=== PATIENT | female | born 1985 | race Two or more races ===

== ENCOUNTER 2017-01-05 08:15 | Inpatient (IN) | payer MEDICARE, MEDICAID ==
[~2017-01-05] VITALS: Ht 156.2 cm; Wt 90.6 kg
[~2017-01-05 08:15] MED LIST: ATOR40TA52 PO; CINA30TA2 PO; CITA-30 PO; FERR325T PO; HYDR-3682 PO; HYDR-531 PO; HYDR200T PO; LORA-205 PO; METO-169 PO; MYCO500T3 PO; PRE5T PO; PROM25TA5 PO; TRAZ100T2 PO; [UNRECOGNIZED DRUG - CODE] PO
[2017-01-05 09:03] LABS: Basophils # (auto) 0.1 uL; Basophils % (auto) 0.8 % (0.0-2.0); Eosinophils # (auto) 0.1 uL; Hematocrit 39.8 % (36.0-46.0); Hemoglobin 13.6 g/dL (12.2-16.2); Lymphocytes # (auto) 2.7 uL; Lymphocytes % (auto) 32.8 % (10.0-50.0); Mean Corpuscular Hemoglobin 28.7 pg (28.0-32.0); Mean Corpuscular Hgb Conc. 34.2 g/dL (32.0-36.0); Mean Corpuscular Volume 83.7 fL (80.0-100.0); Mean Platelet Volume 8.5 fL (7.4-10.4); Monocytes # (auto) 0.9 uL; Monocytes % (auto) 10.5 % (0.0-12.0); Neutrophils # (auto) 4.5 uL; Neutrophils % (auto) 54.9 % (37.0-80.0); Platelet Count (auto) 313 10^3/uL (140-450); Red Cell Distribution Width 13.2 % (11.6-16.0); White Blood Cell 8.3 10^3/uL (4.4-10.8)
[2017-01-05 09:26] LABS: Albumin 3.4 g/dL (3.4-5.0); Alkaline Phosphatase 90 U/L (45-117); Anion Gap 15 (5-15); Aspartate Aminotransferase 54 U/L (15-37); Bilirubin, Total 0.8 mg/dL (0.2-1.0); Blood Urea Nitrogen 56 mg/dL (7-18); Calcium 9.6 mg/dL (8.5-10.1); Carbon Dioxide 23 mmol/L (21-32); Chloride 101 mmol/L (98-107); GFR African American 28 mL/min; GFR Non-African American 23 mL/min; Glucose 115 mg/dL (74-106); Magnesium 1.8 mg/dL (1.6-2.6); Sodium 139 mmol/L (136-145); Total Protein 8.2 g/dL (6.4-8.2)
[2017-01-05 09:33] LABS: Potassium 2.8 mmol/L (3.5-5.1)
[2017-01-05] MEDS ORDERED: LORazepam 2MG/ML-1ML VIAL IV ONE (09:45)
[2017-01-05] MEDS ORDERED: ONDANSETRON HCL 4 MG/2 ML VIAL IV ONE ×2 (09:45→12:30)
[2017-01-05] MEDS ORDERED: NALBUPHINE HCL 10 MG/1ml INJECTION IV ONE (09:45)
[2017-01-05] MEDS ORDERED: POTASSIUM CHL 10% (20 MEQ/15ML) ORAL SOLN PO ONE (09:45)
[2017-01-05] MEDS ORDERED: hydrALAZINE HCL 20 MG/ML VL IV ONE (10:15)
[2017-01-05 10:19] LABS: INR 0.95 (0.9-1.15); Partial Thromboplastin Time 27.3 sec (22.64-33.71); Prothrombin Time 10.3 sec (9.37-12.3)
[2017-01-05] MEDS ORDERED: GABA300C8 PO (11:36)
[2017-01-05] MEDS ORDERED: POTA10TA51 PO (11:36)
[2017-01-05] MEDS ORDERED: HYDROcodone-ACET 10/325MG TAB PO ONE (11:45)
[2017-01-05] MEDS: POTASSIUM CHL 20MEQ/100ML 100 ML IV SCH ×2 (11:45→13:45)
[2017-01-05] MEDS ORDERED: cefTRIAXone 1GM/50ML D5W 50 ML IV ONE (14:45)
[2017-01-05] MEDS ORDERED: hydrALAZINE HCL 20 MG/ML VL IV PRN (14:45)
[2017-01-05] MEDS ORDERED: TEMAZEPAM 15 MG CAP PO PRN (14:45)
[2017-01-05] MEDS ORDERED: ACETAMINOPHEN 325 MG TAB PO PRN (14:45)
[2017-01-05] MEDS ORDERED: HYDROcodone-ACET 5/325MG TAB PO PRN (14:45)
[2017-01-05] MEDS ORDERED: NITROGLYCERIN 0.4 MG SL TAB SL PRN (14:45)
[2017-01-05] MEDS ORDERED: METOPROLOL TARTRATE 50 MG TAB PO ONE (15:15)
[2017-01-05] MEDS: SODIUM CHLORIDE 0.9% 1,000 ML IV SCH ×2 (15:24→22:51)
[2017-01-05] MEDS: FAMOTIDINE 20 MG TAB PO SCH (15:24)
[2017-01-05] MEDS: ONDANSETRON HCL 4 MG/2 ML VIAL IV PRN ×2 (15:26→20:10)
[2017-01-05] MEDS: HYDROmorphone HCL 2 MG/ML VL IV PRN ×2 (15:26→20:10)
[2017-01-05] MEDS: LORazepam 0.5 MG TAB PO PRN (17:44)
[2017-01-05] MEDS: FERROUS SULFATE 325 MG TAB PO SCH (18:45)
[2017-01-05] MEDS ORDERED: CINA30TA2 PO (18:48)
[2017-01-05] MEDS ORDERED: ATOR20TA50 PO (18:48)
[2017-01-05] MEDS ORDERED: PRE1T PO (18:48)
[2017-01-05] MEDS ORDERED: MYCO250C PO (18:48)
[2017-01-05] MEDS ORDERED: DOXE1CAP4 PO (18:48)
[2017-01-05 21:36] VITALS: BP 122/68
[2017-01-05] MEDS ORDERED: FAMOTIDINE 20 MG TAB PO SCH (22:00)
[2017-01-05] MEDS: MYCOPHENOLATE 500 MG TAB PO SCH (22:09)
[2017-01-05] MEDS: GABAPENTIN 300 MG CAP PO SCH (22:09)
[2017-01-05] MEDS: POTASSIUM CHLORIDE 8 MEQ TAB PO SCH (22:09)
[2017-01-05] MEDS: ATORVASTATIN 20 MG TAB PO SCH (22:09)
[2017-01-05] MEDS: HYDROXYCHLOROQUINE SULFATE 200 MG TAB PO SCH (22:09)
[2017-01-05] MEDS: traZODone HCL 50 MG TAB PO SCH (22:09)
[2017-01-05] MEDS: METOPROLOL TARTRATE 50 MG TAB PO SCH (22:10)
[2017-01-06] MEDS: ONDANSETRON HCL 4 MG/2 ML VIAL IV PRN ×6 (00:10→21:39)
[2017-01-06] MEDS: HYDROmorphone HCL 2 MG/ML VL IV PRN ×6 (00:10→21:39)
[2017-01-06] MEDS: LORazepam 0.5 MG TAB PO PRN (03:59)
[2017-01-06 04:56] VITALS: BP 134/56
[2017-01-06 05:39] LABS: Basophils # (auto) 0 uL; Basophils % (auto) 0.5 % (0.0-2.0); Eosinophils # (auto) 0.1 uL; Eosinophils % (auto) 2.4 % (0.0-7.0); Hematocrit 33.8 % (36.0-46.0); Hemoglobin 11.9 g/dL (12.2-16.2); Lymphocytes % (auto) 36.9 % (10.0-50.0); Mean Corpuscular Hemoglobin 29.7 pg (28.0-32.0); Mean Corpuscular Hgb Conc. 35.2 g/dL (32.0-36.0); Mean Corpuscular Volume 84.4 fL (80.0-100.0); Mean Platelet Volume 8.8 fL (7.4-10.4); Monocytes # (auto) 0.7 uL; Monocytes % (auto) 12.9 % (0.0-12.0); Neutrophils # (auto) 2.6 uL; Neutrophils % (auto) 47.3 % (37.0-80.0); Platelet Count (auto) 249 10^3/uL (140-450); Red Cell Distribution Width 13.5 % (11.6-16.0); White Blood Cell 5.5 10^3/uL (4.4-10.8)
[2017-01-06 05:55] LABS: Albumin 2.9 g/dL (3.4-5.0); BUN/Creatinine Ratio 15.4; Calcium 8.9 mg/dL (8.5-10.1)
[2017-01-06 05:58] LABS: Bilirubin, Total 1.3 mg/dL (0.2-1.0); Total Protein 6.9 g/dL (6.4-8.2)
[2017-01-06 06:01] LABS: Potassium 2.9 mmol/L (3.5-5.1)
[2017-01-06] MEDS ORDERED: POTASSIUM CHL 20 Meq TABLET PO ONE (06:45)
[2017-01-06] MEDS: SODIUM CHLORIDE 0.9% 1,000 ML IV SCH ×2 (07:11→14:31)
[2017-01-06 08:00] VITALS: BP 96/40
[2017-01-06] MEDS: CITALOPRAM HYDROBR 20 MG TAB PO SCH (08:52)
[2017-01-06] MEDS: POTASSIUM CHLORIDE 8 MEQ TAB PO SCH (08:53)
[2017-01-06] MEDS: FERROUS SULFATE 325 MG TAB PO SCH (08:53)
[2017-01-06] MEDS: FAMOTIDINE 20 MG TAB PO SCH (08:53)
[2017-01-06] MEDS: cefTRIAXone 1GM/50ML D5W 50 ML IV SCH (08:54)
[2017-01-06] MEDS: MYCOPHENOLATE 500 MG TAB PO SCH ×2 (08:55→21:38)
[2017-01-06] MEDS: CINACALCET HYDROCHLORIDE 30 MG TAB PO SCH (08:56)
[2017-01-06 09:00] VITALS: BP 96/40
[2017-01-06] MEDS: METOPROLOL TARTRATE 50 MG TAB PO SCH ×2 (09:10→21:39)
[2017-01-06] MEDS: HECTORAL PO SCH (09:10)
[2017-01-06] MEDS: predniSONE 1 MG TAB PO SCH (09:17)
[2017-01-06] MEDS ORDERED: PATIENTS OWN MEDICATION PO SCH ×2 (10:00)
[2017-01-06] MEDS: POTASSIUM CHL 20MEQ/100ML 100 ML IV SCH ×2 (12:48→14:45)
[2017-01-06 13:00] VITALS: BP 132/81
[2017-01-06 14:18] LABS: BUN/Creatinine Ratio 14.2; Calcium 8.7 mg/dL (8.5-10.1); Potassium 3.9 mmol/L (3.5-5.1)
[2017-01-06] MEDS ORDERED: PANTOPRAZOLE 40 MG TAB PO ONE (15:15)
[2017-01-06 17:00] VITALS: BP 119/48
[2017-01-06 17:42] LABS: Urine Bilirubin Negative (Negative); Urine Color Yellow (Yellow); Urine Ketone Negative (Negative); Urine Nitrite Negative (Negative); Urine RBC 184 /hpf (0 - 4); Urine Squamous Epithelial Cell FEW /hpf (<5)
[2017-01-06 17:54] LABS: Urine Blood 2+ /uL (Negative); Urine Glucose 2+ mg/dL (Normal)
[2017-01-06] MEDS: BOOST PLUS 8 ounce PO SCH ×2 (17:54→21:38)
[2017-01-06 21:27] LABS: Body Fluid Polymorphonuclear 74 %
[2017-01-06] MEDS: traZODone HCL 50 MG TAB PO SCH (21:38)
[2017-01-06] MEDS: PANTOPRAZOLE 40 MG TAB PO SCH (21:38)
[2017-01-06] MEDS: GABAPENTIN 300 MG CAP PO SCH (21:38)
[2017-01-06] MEDS: ATORVASTATIN 20 MG TAB PO SCH (21:38)
[2017-01-06] MEDS: HYDROXYCHLOROQUINE SULFATE 200 MG TAB PO SCH (21:38)
[2017-01-06 22:00] VITALS: BP 130/51
[2017-01-07] MEDS: HYDROmorphone HCL 2 MG/ML VL IV PRN ×6 (02:21→23:09)
[2017-01-07] MEDS: ONDANSETRON HCL 4 MG/2 ML VIAL IV PRN ×6 (02:21→23:09)
[2017-01-07] MEDS: SODIUM CHLORIDE 0.9% 1,000 ML IV SCH ×2 (03:01→15:32)
[2017-01-07] MEDS: BOOST PLUS 8 ounce PO SCH ×4 (05:10→22:00)
[2017-01-07 06:23] LABS: Basophils # (auto) 0 uL; Basophils % (auto) 0.4 % (0.0-2.0); Eosinophils # (auto) 0.2 uL; Hematocrit 31.3 % (36.0-46.0); Hemoglobin 10.5 g/dL (12.2-16.2); Lymphocytes # (auto) 1.7 uL; Lymphocytes % (auto) 19.8 % (10.0-50.0); Mean Corpuscular Hemoglobin 28.8 pg (28.0-32.0); Mean Corpuscular Hgb Conc. 33.5 g/dL (32.0-36.0); Mean Corpuscular Volume 85.8 fL (80.0-100.0); Monocytes # (auto) 0.8 uL; Monocytes % (auto) 9.6 % (0.0-12.0); Neutrophils # (auto) 5.9 uL; Neutrophils % (auto) 68.2 % (37.0-80.0); Platelet Count (auto) 202 10^3/uL (140-450); Red Cell Distribution Width 13.3 % (11.6-16.0); White Blood Cell 8.6 10^3/uL (4.4-10.8)
[2017-01-07 06:44] LABS: Albumin 2.6 g/dL (3.4-5.0); BUN/Creatinine Ratio 13.5; Bilirubin, Total 0.6 mg/dL (0.2-1.0); Calcium 8.5 mg/dL (8.5-10.1); Potassium 4.3 mmol/L (3.5-5.1); Total Protein 6.3 g/dL (6.4-8.2)
[2017-01-07 08:00] VITALS: BP 136/69
[2017-01-07 08:03] VITALS: BP 136/69
[2017-01-07] MEDS ORDERED: SODIUM CHLORIDE LOCK 10 ML ONE (09:26)
[2017-01-07] MEDS ORDERED: FLUMAZENIL 0.1 MG/ML INJ 10ML MDV IV ONE (09:26)
[2017-01-07] MEDS ORDERED: NALOXONE HCL 0.4 MG/ML VIAL ONE (09:26)
[2017-01-07] MEDS ORDERED: LIDOCAINE VISCOUS 2% 15ML UD ONE (09:26)
[2017-01-07] MEDS: cefTRIAXone 1GM/50ML D5W 50 ML IV SCH (09:37)
[2017-01-07] MEDS: MYCOPHENOLATE 500 MG TAB PO SCH ×2 (10:00→22:13)
[2017-01-07] MEDS: HECTORAL PO SCH (10:00)
[2017-01-07] MEDS: CINACALCET HYDROCHLORIDE 30 MG TAB PO SCH (10:00)
[2017-01-07] MEDS: MIDAZOLAM HCL 5 MG/ML-1ML VIAL ONE ×2 (12:11→12:14)
[2017-01-07] MEDS: fentaNYL CITRATE 100 MCG/2 ML VL ONE ×2 (12:11→12:14)
[2017-01-07 12:20] VITALS: BP 125/62
[2017-01-07] MEDS: PANTOPRAZOLE 40 MG TAB PO SCH ×2 (14:23→22:13)
[2017-01-07] MEDS: METOPROLOL TARTRATE 50 MG TAB PO SCH ×2 (14:23→22:13)
[2017-01-07] MEDS: CITALOPRAM HYDROBR 20 MG TAB PO SCH (14:23)
[2017-01-07] MEDS: POTASSIUM CHLORIDE 8 MEQ TAB PO SCH (14:23)
[2017-01-07] MEDS: predniSONE 1 MG TAB PO SCH (14:25)
[2017-01-07 17:12] VITALS: BP 120/67
[2017-01-07 22:00] VITALS: BP 135/59
[2017-01-07] MEDS: GABAPENTIN 300 MG CAP PO SCH (22:13)
[2017-01-07] MEDS: traZODone HCL 50 MG TAB PO SCH (22:13)
[2017-01-07] MEDS: HYDROXYCHLOROQUINE SULFATE 200 MG TAB PO SCH (22:14)
[2017-01-07] MEDS: ATORVASTATIN 20 MG TAB PO SCH (22:14)
[2017-01-08] MEDS: HYDROmorphone HCL 2 MG/ML VL IV PRN ×5 (04:18→21:24)
[2017-01-08] MEDS: SODIUM CHLORIDE 0.9% 1,000 ML IV SCH ×2 (04:18→16:52)
[2017-01-08] MEDS: ONDANSETRON HCL 4 MG/2 ML VIAL IV PRN ×5 (04:18→21:24)
[2017-01-08 05:00] VITALS: BP 105/45
[2017-01-08] MEDS: BOOST PLUS 8 ounce PO SCH ×4 (06:00→21:22)
[2017-01-08 06:34] LABS: Basophils # (auto) 0 uL; Basophils % (auto) 0.5 % (0.0-2.0); Eosinophils # (auto) 0.3 uL; Eosinophils % (auto) 3.5 % (0.0-7.0); Hematocrit 30.5 % (36.0-46.0); Hemoglobin 10.1 g/dL (12.2-16.2); Lymphocytes # (auto) 1.7 uL; Lymphocytes % (auto) 22.9 % (10.0-50.0); Mean Corpuscular Hemoglobin 28.6 pg (28.0-32.0); Mean Corpuscular Hgb Conc. 33.3 g/dL (32.0-36.0); Mean Corpuscular Volume 85.9 fL (80.0-100.0); Mean Platelet Volume 9.1 fL (7.4-10.4); Monocytes # (auto) 0.9 uL; Monocytes % (auto) 11.3 % (0.0-12.0); Neutrophils # (auto) 4.7 uL; Neutrophils % (auto) 61.8 % (37.0-80.0); Platelet Count (auto) 196 10^3/uL (140-450); Red Cell Distribution Width 13.6 % (11.6-16.0); White Blood Cell 7.5 10^3/uL (4.4-10.8)
[2017-01-08 07:15] LABS: Albumin 2.5 g/dL (3.4-5.0); Bilirubin, Total 0.5 mg/dL (0.2-1.0); Calcium 8.6 mg/dL (8.5-10.1); Potassium 3.8 mmol/L (3.5-5.1); Total Protein 6.3 g/dL (6.4-8.2)
[2017-01-08 08:42] VITALS: BP 121/52
[2017-01-08] MEDS: predniSONE 1 MG TAB PO SCH (08:54)
[2017-01-08] MEDS: CITALOPRAM HYDROBR 20 MG TAB PO SCH (08:55)
[2017-01-08] MEDS: PANTOPRAZOLE 40 MG TAB PO SCH ×2 (08:55→21:24)
[2017-01-08] MEDS: POTASSIUM CHLORIDE 8 MEQ TAB PO SCH (08:55)
[2017-01-08] MEDS: cefTRIAXone 1GM/50ML D5W 50 ML IV SCH (08:56)
[2017-01-08] MEDS: HECTORAL PO SCH (08:56)
[2017-01-08] MEDS: METOPROLOL TARTRATE 50 MG TAB PO SCH ×2 (08:57→21:23)
[2017-01-08] MEDS: MYCOPHENOLATE 500 MG TAB PO SCH ×2 (10:45→21:22)
[2017-01-08] MEDS: CINACALCET HYDROCHLORIDE 30 MG TAB PO SCH (10:45)
[2017-01-08 12:15] VITALS: BP 130/50
[2017-01-08 13:11] VITALS: BP 136/79
[2017-01-08] MEDS: HYDROCORTISONE ACET 25 MG RECTAL SUPP PR SCH ×2 (15:25→21:24)
[2017-01-08 16:56] VITALS: BP 143/73
[2017-01-08] MEDS: Novasource Renal 8 Ounces PO SCH (17:56)
[2017-01-08] MEDS: PRO-STAT 64 30ML PO SCH (17:56)
[2017-01-08] MEDS: ATORVASTATIN 20 MG TAB PO SCH (21:23)
[2017-01-08] MEDS: GABAPENTIN 300 MG CAP PO SCH (21:23)
[2017-01-08] MEDS: traZODone HCL 50 MG TAB PO SCH (21:23)
[2017-01-08] MEDS: HYDROXYCHLOROQUINE SULFATE 200 MG TAB PO SCH (21:24)
[2017-01-08 22:00] VITALS: BP 125/58
[2017-01-09] MEDS: HYDROmorphone HCL 2 MG/ML VL IV PRN ×4 (03:38→16:33)
[2017-01-09] MEDS: ONDANSETRON HCL 4 MG/2 ML VIAL IV PRN ×4 (03:39→16:34)
[2017-01-09 05:00] VITALS: BP 116/56
[2017-01-09] MEDS: SODIUM CHLORIDE 0.9% 1,000 ML IV SCH ×2 (05:17→16:26)
[2017-01-09] MEDS: BOOST PLUS 8 ounce PO SCH ×3 (06:00→17:44)
[2017-01-09 08:00] VITALS: BP 131/59
[2017-01-09] MEDS: Novasource Renal 8 Ounces PO SCH ×2 (08:01→17:44)
[2017-01-09] MEDS: PRO-STAT 64 30ML PO SCH ×2 (08:02→17:44)
[2017-01-09 09:00] VITALS: BP 131/59
[2017-01-09] MEDS: HECTORAL PO SCH (10:00)
[2017-01-09] MEDS: MYCOPHENOLATE 500 MG TAB PO SCH (10:00)
[2017-01-09] MEDS: CINACALCET HYDROCHLORIDE 30 MG TAB PO SCH (10:00)
[2017-01-09] MEDS: CITALOPRAM HYDROBR 20 MG TAB PO SCH (10:28)
[2017-01-09] MEDS: PANTOPRAZOLE 40 MG TAB PO SCH (10:28)
[2017-01-09] MEDS: HYDROCORTISONE ACET 25 MG RECTAL SUPP PR SCH (10:28)
[2017-01-09] MEDS: cefTRIAXone 1GM/50ML D5W 50 ML IV SCH (10:28)
[2017-01-09] MEDS: METOPROLOL TARTRATE 50 MG TAB PO SCH (10:29)
[2017-01-09] MEDS: POTASSIUM CHLORIDE 8 MEQ TAB PO SCH (10:39)
[2017-01-09] MEDS: predniSONE 1 MG TAB PO SCH (12:29)
[2017-01-09 13:08] VITALS: BP 131/50
[2017-01-09] MEDS ORDERED: PANT40TA2 PO (14:00)
[2017-01-09] MEDS ORDERED: SUC1LQ PO (14:00)
[2017-01-09] MEDS ORDERED: PRE1T PO (14:00)
[2017-01-09 16:57] VITALS: BP 143/68
[2017-01-09 20:44] VITALS: BP 126/74
== END 2017-01-09 21:15 | disposition home or self-care (01) | DRG 391 ==
LOC: ER 08:15 → TELE 08:16 → TELE-E-ADS 16:42 → TELE-WESTW 18:11
PROVIDERS: ADMIT Internal Medicine; ATTEND Nurse Practitioner Acute Care
PROC: 0DB68ZX Excision of Stomach, Via Natural or Artificial Opening Endoscopic, Diagnostic (ICD-10-PCS; principal; 2017-01-07 12:08)
DX: K29.00 Acute gastritis without bleeding (principal); N18.6 End stage renal disease; E43 Unspecified severe protein-calorie malnutrition; I13.2 Hypertensive heart and chronic kidney disease with heart failure and with stage 5 chronic kidney disease, or end stage renal disease; M87.9 Osteonecrosis, unspecified; J20.9 Acute bronchitis, unspecified; E87.6 Hypokalemia; F41.9 Anxiety disorder, unspecified; M32.9 Systemic lupus erythematosus, unspecified; I50.9 Heart failure, unspecified; K52.9 Noninfective gastroenteritis and colitis, unspecified; M79.7 Fibromyalgia; I71.9 Aortic aneurysm of unspecified site, without rupture; E86.0 Dehydration; M19.90 Unspecified osteoarthritis, unspecified site; D63.8 Anemia in other chronic diseases classified elsewhere; Z99.2 Dependence on renal dialysis; Z90.49 Acquired absence of other specified parts of digestive tract; Z88.5 Allergy status to narcotic agent; Z88.8 Allergy status to other drugs, medicaments and biological substances; Z86.79 Personal history of other diseases of the circulatory system; Z86.14 Personal history of Methicillin resistant Staphylococcus aureus infection; Z68.37 Body mass index [BMI] 37.0-37.9, adult
CPT/HCPCS: 36415; 71020; 74176; 80048; 80053; 80074; 81001; 82306; 83735; 83970; 84100; 84484; 84702; 85025; 85610; 85730; 87070; 87081; 87205; 87493; 89051; 93005; 96374; 96375; 96376; J0696; J2250; J2405; J3480; J7517

== ENCOUNTER 2017-02-05 05:24 | Emergency (ER) | payer MEDICARE, MEDICAID ==
[~2017-02-05] VITALS: Ht 154.9 cm; Wt 72.6 kg
[~2017-02-05 05:24] MED LIST changes: +ATOR20TA50 PO; -ATOR40TA52 PO; +DOXE1CAP4 PO; +GABA300C8 PO; +MYCO250C PO; -MYCO500T3 PO; +PANT40TA2 PO; +POTA10TA51 PO; +PRE1T PO; -PRE5T PO; +SUC1LQ PO; -[UNRECOGNIZED DRUG - CODE] PO
[2017-02-05 05:44] VITALS: BP 132/65
== END 2017-02-05 06:15 | disposition left against medical advice (07) ==
LOC: ER 05:24
DX: R07.9 Chest pain, unspecified (principal); Z53.21 Procedure and treatment not carried out due to patient leaving prior to being seen by health care provider
CPT/HCPCS: 93005

== ENCOUNTER 2019-05-30 17:48 | Inpatient (IN) | payer MEDICARE, MEDICAID ==
[~2019-05-30] VITALS: Ht 160 cm; Wt 70.4 kg
[~2019-05-30 17:48] MED LIST changes: -ATOR20TA50 PO; -CINA30TA2 PO; -CITA-30 PO; -DOXE1CAP4 PO; -FERR325T PO; -GABA300C8 PO; +HYDR-4188 PO; -HYDR200T PO; -METO-169 PO; -POTA10TA51 PO; -SUC1LQ PO
[2019-05-30] MEDS ORDERED: ONDANSETRON HCL 4 MG/2 ML VIAL IV ONE (19:15)
[2019-05-30] MEDS ORDERED: MORPHINE SULFATE 4 MG/ML SYR/VIAL IV ONE (19:15)
[2019-05-30] MEDS ORDERED: VANCOMYCIN 1GM/250ML 250 ML IV ONE (19:45)
[2019-05-30] MEDS ORDERED: PIPERACILLIN-TAZOB 3.375GM 100 ML IV ONE (19:45)
[2019-05-30 19:49] LABS: Basophils # (auto) 0.1 uL; Basophils % (auto) 0.8 % (0.0-2.0); Eosinophils # (auto) 0.1 uL; Eosinophils % (auto) 1.5 % (0.0-7.0); Hematocrit 34.1 % (36.0-46.0); Hemoglobin 11.3 g/dL (12.2-16.2); Lymphocytes % (auto) 28.8 % (10.0-50.0); Mean Corpuscular Hemoglobin 29.6 pg (28.0-32.0); Mean Corpuscular Hgb Conc. 33.1 g/dL (32.0-36.0); Mean Corpuscular Volume 89.4 fL (80.0-100.0); Monocytes # (auto) 0.5 uL; Monocytes % (auto) 7.7 % (0.0-12.0); Neutrophils # (auto) 4.2 uL; Neutrophils % (auto) 61.2 % (37.0-80.0); Nucleated Red Blood Cells % 0.1 %; Platelet Count (auto) 136 10^3/uL (140-450); Red Blood Cells 3.81 10^6/uL (4.0-5.20); Red Cell Distribution Width 16.1 % (11.8-14.3); White Blood Cell 6.9 10^3/uL (4.4-10.8)
[2019-05-30 20:01] LABS: Alanine Aminotransferase 19 U/L (13-56); Albumin 2.9 g/dL (3.4-5.0); Anion Gap 14 (5-15); Aspartate Aminotransferase 10 U/L (15-37); BUN/Creatinine Ratio 11.1; Blood Urea Nitrogen 78 mg/dL (7-18); Calcium 8.3 mg/dL (8.5-10.1); Carbon Dioxide 17 mmol/L (21-32); Chloride 106 mmol/L (98-107); GFR African American 9 mL/min; GFR Non-African American 7 mL/min; Glucose 105 mg/dL (74-106); Potassium 4.5 mmol/L (3.5-5.1); Sodium 137 mmol/L (136-145)
[2019-05-30 20:04] LABS: Alkaline Phosphatase 191 U/L (45-117); Bilirubin, Total 0.2 mg/dL (0.2-1.0); Total Protein 6.6 g/dL (6.4-8.2)
[2019-05-30 20:08] LABS: INR < 0.93 (0.9-1.15); Partial Thromboplastin Time 28.2 sec (23.64-32.05)
[2019-05-30] MEDS ORDERED: methylPREDNISolone SOD SUCC 125 MG/2 ML VL IV ONE (20:15)
[2019-05-30] MEDS ORDERED: methylPREDNISolone SOD SUCC 125 MG/2 ML VL ONE (20:17)
[2019-05-30] MEDS ORDERED: LORazepam 2MG/ML-1ML VIAL IV ONE ×2 (20:30→21:00)
[2019-05-30] MEDS ORDERED: PROMETHAZINE HCL 25 MG/ML 1ML IV ONE (20:45)
[2019-05-30 22:54] LABS: Urine Bacteria NONE SEEN /hpf (None Seen); Urine Blood 2+ /uL (Negative); Urine Specific Gravity 1.012 (1.001-1.035); Urine WBC 1 /hpf (0 - 5)
[2019-05-31] VITALS (9 sets, daily range): BP systolic 141–177; BP diastolic 38–77
[2019-05-31] MEDS ORDERED: METOPROLOL TARTRATE 50 MG TAB PO ONE (00:15)
[2019-05-31] MEDS ORDERED: ACETAMINOPHEN 500 MG TAB PO PRN (00:45)
[2019-05-31] MEDS ORDERED: LORazepam 0.5 MG TAB PO PRN (00:45)
[2019-05-31] MEDS ORDERED: HYDROmorphone HCL 2 MG/ML VL IV ONE (01:30)
[2019-05-31] MEDS: cloNIDine HCL 0.1 MG TAB PO PRN ×3 (02:51→12:14)
[2019-05-31] MEDS: HYDROcodone-ACET 5/325MG TAB PO PRN ×4 (02:52→21:56)
[2019-05-31] MEDS ORDERED: CINA30TA2 PO (03:56)
[2019-05-31] MEDS ORDERED: SEVE800T8 PO (03:56)
[2019-05-31] MEDS: PANTOPRAZOLE 40 MG TAB PO SCH (05:16)
[2019-05-31] MEDS: cefTRIAXone 1GM/50ML D5W 50 ML IV SCH (06:53)
[2019-05-31 07:09] LABS: Basophils # (auto) 0 uL; Eosinophils # (auto) 0 uL; Eosinophils % (auto) 0.1 % (0.0-7.0); Hematocrit 33.6 % (36.0-46.0); Hemoglobin 11.2 g/dL (12.2-16.2); Lymphocytes # (auto) 0.7 uL; Lymphocytes % (auto) 23.3 % (10.0-50.0); Mean Corpuscular Hemoglobin 29.7 pg (28.0-32.0); Mean Corpuscular Hgb Conc. 33.4 g/dL (32.0-36.0); Mean Corpuscular Volume 88.8 fL (80.0-100.0); Monocytes # (auto) 0 uL; Monocytes % (auto) 0.7 % (0.0-12.0); Neutrophils # (auto) 2.3 uL; Neutrophils % (auto) 75.9 % (37.0-80.0); Platelet Count (auto) 117 10^3/uL (140-450); Red Blood Cells 3.78 10^6/uL (4.0-5.20); Red Cell Distribution Width 15.7 % (11.8-14.3); White Blood Cell 3.1 10^3/uL (4.4-10.8)
[2019-05-31 07:33] LABS: Calcium 8.5 mg/dL (8.5-10.1); Potassium 5.2 mmol/L (3.5-5.1)
[2019-05-31 07:34] LABS: BUN/Creatinine Ratio 11.7
[2019-05-31] MEDS: metroNIDAZOLE 500MG/100ML 100 ML IV SCH ×3 (08:17→23:39)
[2019-05-31] MEDS: HYDROXYCHLOROQUINE SULFATE 200 MG TAB PO SCH (09:15)
[2019-05-31] MEDS: MYCOPHENOLATE 500 MG TAB PO SCH ×2 (09:15→21:40)
[2019-05-31] MEDS: METOPROLOL TARTRATE 50 MG TAB PO SCH ×2 (09:15→21:42)
[2019-05-31] MEDS: PERITONEAL DIALYSIS 2.5% SOLN 2,000 ML IP SCH ×4 (11:30→21:41)
[2019-05-31] MEDS ORDERED: HYDROmorphone HCL 2 MG/ML VL IV PRN (11:45)
[2019-05-31] MEDS ORDERED: hydrOXYzine 25 MG TAB or CAP PO PRN (11:45)
[2019-05-31] MEDS: ONDANSETRON HCL 4 MG/2 ML VIAL IV PRN ×2 (12:04→18:25)
[2019-05-31 16:06] LABS: Protein, Urine 106.1 mg/dL (0.0-11.9)
[2019-05-31] MEDS: HYDROmorphone HCL 2 MG/ML VL IV PRN ×2 (18:29→23:38)
[2019-05-31] MEDS ORDERED: traZODone HCL 50 MG TAB PO SCH (22:00)
[2019-06-01] MEDS: PERITONEAL DIALYSIS 2.5% SOLN 2,000 ML IP SCH ×3 (01:44→09:07)
[2019-06-01] MEDS: HYDROmorphone HCL 2 MG/ML VL IV PRN ×2 (05:02→09:09)
[2019-06-01] MEDS: PANTOPRAZOLE 40 MG TAB PO SCH (05:07)
[2019-06-01 05:52] VITALS: BP 115/42
[2019-06-01 06:28] LABS: Potassium 4.2 mmol/L (3.5-5.1)
[2019-06-01] MEDS: cefTRIAXone 1GM/50ML D5W 50 ML IV SCH (06:30)
[2019-06-01 06:37] LABS: BUN/Creatinine Ratio 12.7; Calcium 7.6 mg/dL (8.5-10.1)
[2019-06-01] MEDS: metroNIDAZOLE 500MG/100ML 100 ML IV SCH (07:57)
[2019-06-01] MEDS: ONDANSETRON HCL 4 MG/2 ML VIAL IV PRN (08:38)
[2019-06-01 09:00] VITALS: BP 128/54
[2019-06-01] MEDS: MYCOPHENOLATE 500 MG TAB PO SCH (09:08)
[2019-06-01] MEDS: METOPROLOL TARTRATE 50 MG TAB PO SCH (09:08)
[2019-06-01] MEDS: HYDROXYCHLOROQUINE SULFATE 200 MG TAB PO SCH (09:09)
[2019-06-01] MEDS ORDERED: predniSONE 20 MG TAB PO SCH (10:00)
== END 2019-06-01 12:24 | disposition home or self-care (01) | DRG 391 ==
LOC: ER 17:55 → TELE 17:56 → TELE-EAST 05-31 02:21
PROVIDERS: ADMIT Nurse Practitioner Family; ATTEND Family Medicine
DX: R10.9 Unspecified abdominal pain (principal); N18.6 End stage renal disease; I12.0 Hypertensive chronic kidney disease with stage 5 chronic kidney disease or end stage renal disease; E87.5 Hyperkalemia; M32.9 Systemic lupus erythematosus, unspecified; G89.29 Other chronic pain; D63.8 Anemia in other chronic diseases classified elsewhere; E78.00 Pure hypercholesterolemia, unspecified; F41.9 Anxiety disorder, unspecified; I27.20 Pulmonary hypertension, unspecified; E86.0 Dehydration; Z88.6 Allergy status to analgesic agent; Z88.8 Allergy status to other drugs, medicaments and biological substances; Z90.49 Acquired absence of other specified parts of digestive tract; Z99.2 Dependence on renal dialysis; Z83.49 Family history of other endocrine, nutritional and metabolic diseases; Z98.51 Tubal ligation status; Z82.49 Family history of ischemic heart disease and other diseases of the circulatory system; Z79.899 Other long term (current) drug therapy; Z83.3 Family history of diabetes mellitus
CPT/HCPCS: 36415; 71045; 74176; 80048; 80053; 81001; 82570; 83605; 84156; 84702; 85025; 85610; 85730; 86038; 86160; 87040; 87081; 87205; 87493; 89051; 93005; G0378; J0696; J2405; J2543; J3490; J7517

== ENCOUNTER 2020-07-05 16:53 | Inpatient (IN) | payer MEDICARE, MEDICAID ==
[~2020-07-05] VITALS: Ht 157.5 cm; Wt 59.0 kg
[~2020-07-05 16:53] MED LIST changes: +CINA30TA2 PO; -PANT40TA2 PO; -PRE1T PO; +SEVE800T8 PO; -TRAZ100T2 PO; +TRAZ100T3 PO
[2020-07-05] MEDS ORDERED: MORPHINE SULFATE 4 MG/ML SYR/VIAL IV ONE (18:00)
[2020-07-05] MEDS ORDERED: ONDANSETRON HCL 4 MG/2 ML VIAL IV ONE (18:00)
[2020-07-05 18:21] LABS: Basophils # (auto) 0 10 ^3/uL (0-0.2); Basophils % (auto) 0.2 % (0.0-2.0); Eosinophils # (auto) 0.1 10 ^3/uL (0-0.8); Eosinophils % (auto) 0.5 % (0.0-7.0); Hematocrit 26.6 % (36.0-46.0); Hemoglobin 8.9 g/dL (12.2-16.2); Lymphocytes # (auto) 1.5 10 ^3/uL (0.4-5.4); Lymphocytes % (auto) 13.1 % (10.0-50.0); Mean Corpuscular Hemoglobin 27.8 pg (28.0-32.0); Mean Corpuscular Hgb Conc. 33.3 g/dL (32.0-36.0); Mean Corpuscular Volume 83.3 fL (80.0-100.0); Monocytes # (auto) 0.7 10 ^3/uL (0-1.3); Monocytes % (auto) 6.4 % (0.0-12.0); Neutrophils # (auto) 9.1 10 ^3/uL (1.6-8.6); Neutrophils % (auto) 79.8 % (37.0-80.0); Platelet Count (auto) 158 10^3/uL (140-450); Red Blood Cells 3.19 10^6/uL (4.0-5.20); Red Cell Distribution Width 17.3 % (11.8-14.3); White Blood Cell 11.4 10^3/uL (4.4-10.8)
[2020-07-05 18:45] LABS: Albumin 2.6 g/dL (3.4-5.0); Anion Gap 12 (5-15); Blood Urea Nitrogen 71 mg/dL (7-18); Calcium 8.3 mg/dL (8.5-10.1); Carbon Dioxide 19 mmol/L (21-32); Chloride 105 mmol/L (98-107); Glucose 93 mg/dL (74-106); Potassium 3.8 mmol/L (3.5-5.1); Sodium 136 mmol/L (136-145)
[2020-07-05] MEDS ORDERED: PROCHLORPERAZINE EDISYLATE 5 MG/ML 2ML VIAL IV ONE (18:45)
[2020-07-05 18:53] LABS: Alanine Aminotransferase 18 U/L (13-56); Alkaline Phosphatase 179 U/L (45-117); Aspartate Aminotransferase 6 U/L (15-37); BUN/Creatinine Ratio 8.2; Bilirubin, Total 0.4 mg/dL (0.2-1.0); CRP High Sensitivity 1.18 mg/dL (< 0.3); GFR African American 7 mL/min; GFR Non-African American 6 mL/min; Total Protein 6.5 g/dL (6.4-8.2)
[2020-07-05] MEDS ORDERED: ACETAMINOPHEN 325 MG TAB PO ONE (19:30)
[2020-07-05] MEDS ORDERED: NITROGLYCERIN 0.4 MG SL TAB SL PRN (20:00)
[2020-07-05] MEDS ORDERED: MORPHINE SULF INJ 2 MG/ML SYRINGE 1ML IV PRN (20:00)
[2020-07-05] MEDS ORDERED: hydrALAZINE HCL 20 MG/ML VL IV PRN (20:00)
[2020-07-05] MEDS ORDERED: LORazepam 2MG/ML-1ML VIAL IV PRN (20:00)
[2020-07-05 20:35] VITALS: BP 149/53
[2020-07-05] MEDS: SODIUM CHLORIDE 0.9% 1,000 ML IV SCH (20:47)
[2020-07-05 22:00] VITALS: BP 155/75
[2020-07-05] MEDS ORDERED: ALBUTEROL SULF HFA 90MCG INH 200DOSE IN SCH (22:00)
[2020-07-05] MEDS ORDERED: DOXYCYCLINE 100MG/250ML 250 ML IV SCH (22:00)
[2020-07-05] MEDS ORDERED: BUDESONIDE (INHALATION) 180 MCG IH IN SCH (22:00)
--- NOTE | 2020-07-05 22:00 | NUR ---
Telemetry admit from ER to [facility]-19 Unit AISLINN BRANNON admitted to Telemetry unit. Patient oriented to YEISON GREER, primary RN, unit, room, bed, and unit policies regarding patient care and visiting hours. Patient now on continuous telemetry monitoring, tele box # 2 and telemetry reading on arrival to unit is sinus rhythm. Patient is alert and oriented x4. Patient denies pain or shortness of breath at this time. No sign/symptoms of distress noted or verbalized at this time. Instructed on plan of care and encouraged patient to call for assistance as needed, patient verbalized understanding. Bed is locked in lowest position, side rails x 2 are up, and call light is within reach.
--- NOTE | 2020-07-05 22:03 | NUR ---
Respiratory note: MDI TX HELD AT THIS TIME, AWAITING COVID TEST RESULTS.
[2020-07-05] MEDS: ONDANSETRON HCL 4 MG/2 ML VIAL IV PRN (22:50)
[2020-07-05] MEDS: MORPHINE SULF INJ 2 MG/ML SYRINGE 1ML IV PRN (22:50)
[2020-07-06] MEDS ORDERED: METO-169 PO (01:49)
[2020-07-06] MEDS ORDERED: HYDR-4188 PO (01:49)
[2020-07-06] MEDS ORDERED: LORA0.5T20 PO (01:49)
[2020-07-06] MEDS ORDERED: METH5T PO (01:49)
[2020-07-06] MEDS ORDERED: TRAZ300T16 PO (01:49)
[2020-07-06 02:20] VITALS: BP 154/73
--- NOTE | 2020-07-06 02:36 | NUR ---
Spoke with Hospitalist RE: Blood Pressure Notified NADYA Marroquin that patient's blood pressure is 154/73, heart rate: 87 and ordered PRN hydralazine 10mg IV for SBP greater than 150 is on back order. NADYA Marroquin also notified that patient has no PRN Tylenol ordered at this time for elevated temp. Orders received to change Hydralazine IV to Hydralazine PO 50mg every 4 hours as needed for SBP greater than 160. Orders also received for Tylenol 650mg PO every 4 hours as needed for temp greater than 100.4 or mild pain. Orders read back and verified. Will carry orders as received.
[2020-07-06] MEDS ORDERED: ACETAMINOPHEN 325 MG TAB PO PRN (02:45)
[2020-07-06] MEDS: MORPHINE SULF INJ 2 MG/ML SYRINGE 1ML IV PRN ×4 (04:29→22:36)
[2020-07-06] MEDS: ONDANSETRON HCL 4 MG/2 ML VIAL IV PRN ×3 (04:29→22:37)
[2020-07-06] MEDS: hydrALAZINE HCL 25 MG TAB PO PRN (04:32)
[2020-07-06 04:43] VITALS: BP 161/68
--- NOTE | 2020-07-06 04:48 | NUR ---
Patient Transferred From Covid-19 Unit Patient transferred from covid-19 unit to room 270B. Report given to Lisa GRAHAM. Patient transferred via wheelchair with all personal belongings accompanied by resource RN Mulu. No sign/symptoms of distress noted upon departure. Patient care endorsed to Lisa GRAHAM.
--- NOTE | 2020-07-06 04:50 | NUR ---
RECEIVED REPORT AND ASSUMED CARE OF PT AT THIS TIME. PT RECEIVED TO ROOM 270-B IN STABLE COND. PT ORIENTED TO ROOM AND PROCEDURES AND POC DISCUSSED WITH PT. PT VERBALIZES UNDERSTANDING. BED IS LOW, WHEELS ARE LOCKED, AND CALL LIGHT IS WITH IN REACH.
[2020-07-06 07:19] LABS: Albumin 2.4 g/dL (3.4-5.0); Basophils # (auto) 0 10 ^3/uL (0-0.2); Basophils % (auto) 0.2 % (0.0-2.0); Calcium 8.2 mg/dL (8.5-10.1); Eosinophils # (auto) 0 10 ^3/uL (0-0.8); Eosinophils % (auto) 0.2 % (0.0-7.0); Hematocrit 24.4 % (36.0-46.0); Hemoglobin 8.2 g/dL (12.2-16.2); Lymphocytes # (auto) 1.5 10 ^3/uL (0.4-5.4); Lymphocytes % (auto) 16.6 % (10.0-50.0); Mean Corpuscular Hemoglobin 28.3 pg (28.0-32.0); Mean Corpuscular Hgb Conc. 33.8 g/dL (32.0-36.0); Mean Corpuscular Volume 83.7 fL (80.0-100.0); Monocytes # (auto) 0.8 10 ^3/uL (0-1.3); Monocytes % (auto) 8.3 % (0.0-12.0); Neutrophils # (auto) 6.9 10 ^3/uL (1.6-8.6); Neutrophils % (auto) 74.7 % (37.0-80.0); Nucleated Red Blood Cells % 0.1 %; Platelet Count (auto) 127 10^3/uL (140-450); Red Blood Cells 2.92 10^6/uL (4.0-5.20); Red Cell Distribution Width 17.2 % (11.8-14.3); White Blood Cell 9.2 10^3/uL (4.4-10.8)
[2020-07-06 07:23] LABS: BUN/Creatinine Ratio 8.5; Bilirubin, Total 1.6 mg/dL (0.2-1.0)
--- NOTE | 2020-07-06 07:30 | NUR ---
Opening Shift Note RECEIVED REPORT FROM NOC RN. Assumed care of patient, awake and alert. No S/S of distress/SOB or pain. BED IN LOWEST, LOCKED POSITION WITH SIDERAILS UP x2 AND CALL LIGHT WITHIN REACH. Instructed on POC and to call for assist PRN, will continue to monitor for changes Q1hr and PRN.
[2020-07-06 08:59] VITALS: BP 139/61
[2020-07-06] MEDS ORDERED: AZITHROMYCIN 500MG/ 250ML 250 ML IV SCH (10:00)
[2020-07-06] MEDS: ENOXAPARIN SOD 30 MG/0.3 ML SYRINGE SC SCH (10:28)
[2020-07-06] MEDS: PANTOPRAZOLE 40 MG/10 ML VIAL INJ IV SCH (10:29)
--- NOTE | 2020-07-06 10:40 | NUR ---
DR. LAMBERT AT BEDSIDE.
[2020-07-06 12:28] VITALS: BP 147/56
[2020-07-06] MEDS ORDERED: hydrOXYzine 25 MG TAB or CAP PO PRN (14:00)
[2020-07-06 16:38] VITALS: BP 148/67
[2020-07-06] MEDS ORDERED: methIMAzole 5 MG TAB PO ONE (17:00)
--- NOTE | 2020-07-06 17:22 | NUR ---
PATIENT NO LONGER TAKES CELLCEPT. PATIENT UNSURE ABOUT HYDROXYCHLOROQUINE DOSE.
--- NOTE | 2020-07-06 17:47 | NUR ---
IV insertion IV access obtained, via clean sterile technique by inserting 22 gauge catheter at LEFT UPPER CHEST after 1 attempt(s). IV secured properly. No trauma to site. Patient tolerated well. NOTE: IV INITIATED BY CARLITO, CLOTH BALER.
--- NOTE | 2020-07-06 17:48 | NUR ---
IV removal IV TO RIGHT AC DC'd with clean sterile technique, catheter fully intact. Pressure dressing applied to site. Patient tolerated well.
[2020-07-06] MEDS: SODIUM CHLORIDE 0.9% 1,000 ML IV SCH (20:00)
[2020-07-06 22:00] VITALS: BP 143/64
[2020-07-06] MEDS ORDERED: ceFAZolin 1GM/50ML 50 ML IV SCH (22:00)
[2020-07-06] MEDS: PROPYLTHIOURACIL 50 MG TAB PO SCH (22:00)
[2020-07-06] MEDS ORDERED: metroNIDAZOLE 500 MG TAB PO SCH (22:00)
[2020-07-07] MEDS: MORPHINE SULF INJ 2 MG/ML SYRINGE 1ML IV PRN ×6 (03:28→21:43)
[2020-07-07 04:50] LABS: Urine Bacteria FEW /hpf (None Seen); Urine Blood 2+ /uL (Negative); Urine Specific Gravity 1.008 (1.001-1.035); Urine WBC <1 /hpf (0 - 5)
[2020-07-07 05:00] VITALS: BP 144/62
[2020-07-07] MEDS: PROPYLTHIOURACIL 50 MG TAB PO SCH ×3 (05:24→21:36)
--- NOTE | 2020-07-07 05:45 | NUR ---
URINE AND PERITONEAL FLUID ENT TO LAB.
[2020-07-07 06:09] LABS: Basophils # (auto) 0 10 ^3/uL (0-0.2); Basophils % (auto) 0.5 % (0.0-2.0); Eosinophils # (auto) 0.1 10 ^3/uL (0-0.8); Eosinophils % (auto) 1.2 % (0.0-7.0); Hematocrit 22.1 % (36.0-46.0); Hemoglobin 7.5 g/dL (12.2-16.2); Lymphocytes # (auto) 1.8 10 ^3/uL (0.4-5.4); Lymphocytes % (auto) 21.3 % (10.0-50.0); Mean Corpuscular Hemoglobin 28.7 pg (28.0-32.0); Mean Corpuscular Hgb Conc. 33.9 g/dL (32.0-36.0); Mean Corpuscular Volume 84.8 fL (80.0-100.0); Monocytes # (auto) 0.8 10 ^3/uL (0-1.3); Monocytes % (auto) 9.6 % (0.0-12.0); Neutrophils # (auto) 5.8 10 ^3/uL (1.6-8.6); Neutrophils % (auto) 67.4 % (37.0-80.0); Platelet Count (auto) 124 10^3/uL (140-450); Red Blood Cells 2.61 10^6/uL (4.0-5.20); Red Cell Distribution Width 17.2 % (11.8-14.3); White Blood Cell 8.6 10^3/uL (4.4-10.8)
--- NOTE | 2020-07-07 06:48 | NUR ---
DR NEWBY RETURNED PAGE AND NEW ORDERS RECEIVED AT THIS TIME. SEE WRITTEN ORDERS. Addendum: 07/07/20 at 0656 by SUZY RIZVI RN CORRECTION: WRONG PATIENT
[2020-07-07 07:24] LABS: BUN/Creatinine Ratio 7.9; Calcium 8.2 mg/dL (8.5-10.1); Potassium 3.8 mmol/L (3.5-5.1)
--- NOTE | 2020-07-07 07:39 | NUR ---
critical lab value received call with critical BUN/CREA levels. Will page sap pp consultant hospitalist
--- NOTE | 2020-07-07 07:43 | NUR ---
STONE CRUSHER OPERATOR Hospitalist paged for critical lab values. Awaiting call back.
--- NOTE | 2020-07-07 08:11 | NUR ---
RE: critical labs Detailed message left to Dr. Bhakta exchange system. Awaiting call back.
[2020-07-07 08:40] VITALS: BP 149/65
--- NOTE | 2020-07-07 08:52 | NUR ---
CNC SERVICE ENGINEER Consult Dr. GEORGES at bed side. New orders received. Will implement.
--- NOTE | 2020-07-07 09:48 | NUR ---
Dr. Siddiqi at bed side.
--- NOTE | 2020-07-07 09:49 | NUR ---
Nephrology Consult Dr. Bhakta at bed side. New orders received, read back and verified.
[2020-07-07] MEDS ORDERED: methIMAzole 5 MG TAB PO SCH (10:00)
[2020-07-07] MEDS ORDERED: AZITHROMYCIN 250 MG TAB PO SCH (10:00)
[2020-07-07] MEDS: PANTOPRAZOLE 40 MG/10 ML VIAL INJ IV SCH (10:50)
[2020-07-07] MEDS: cefTRIAXone 1GM/50ML D5W 50 ML IV SCH (10:50)
[2020-07-07] MEDS: ONDANSETRON HCL 4 MG/2 ML VIAL IV PRN ×3 (10:50→21:36)
[2020-07-07] MEDS: AZITHROMYCIN 250 MG TAB PO SCH (10:50)
[2020-07-07] MEDS: ENOXAPARIN SOD 30 MG/0.3 ML SYRINGE SC SCH (10:51)
[2020-07-07] MEDS: hydrALAZINE HCL 25 MG TAB PO PRN (12:26)
[2020-07-07 13:00] VITALS: BP 163/72
[2020-07-07] MEDS ORDERED: HYDROcodone-ACET 10/325MG TAB PO PRN (13:00)
--- NOTE | 2020-07-07 14:00 | NUR ---
IV insertion IV access obtained, via clean sterile technique by inserting 22 gauge catheter at MONALISA after 4 attempts. IV secured properly. No trauma to site. Patient tolerated well.
--- NOTE | 2020-07-07 14:12 | NUR ---
Infectious Disease Consult Dr. Downey at bed side
--- NOTE | 2020-07-07 15:46 | NUR ---
New orders received by MD Downey to isolate pt. Refer to order hx.
--- NOTE | 2020-07-07 16:45 | NUR ---
Report given to Twan GRAHAM, Agata.
--- NOTE | 2020-07-07 16:50 | NUR ---
PATIENT ARRIVED TO COVID UNIT VIA A WHEELCHAIR, ALERT ORIENTED X4, TO ROOM 235, PT CONTINUE ON PERITONEAL DIALYSIS, 3 HR TO GO, PT IS VERY INDEPENDENT IN HER CARE, NO DISTRESS NOTED, CONTINUE TO HAVE A BODY ACHES, ROOM ORIENTATION GIVEN TO PT, CALL LIGHT WITHIN REACH
--- NOTE | 2020-07-07 16:50 | NUR ---
Patient tx to covid unit via wheelchair with all precautions in place. Patients belongings accounted for. No s/s pain/ distress.
[2020-07-07 16:59] VITALS: BP 160/65
[2020-07-07 17:00] VITALS: BP 146/65
--- NOTE | 2020-07-07 18:09 | NUR ---
PT IS COMPLAINING FROM HAND CRAMPS, HOT PACKS APPLIED, CONTINUE MONITORING
--- NOTE | 2020-07-07 18:30 | NUR ---
PT HAS A FEW BROWN BLOOD VAGINALLY, NO ACTIVE BLEEDING NOTED
--- NOTE | 2020-07-07 19:00 | NUR ---
PT CONTINUE STABLE, CONTINUE MONITORING
--- NOTE | 2020-07-07 20:00 | NUR ---
Opening Shift Note Assumed care of patient, awake and alert. No S/S of distress/SOB noted. Instructed on POC and to call for assist PRN. Bed is in lowest locked position with bed rails up x 2 and call light is within reach of the patient.
[2020-07-07 22:00] VITALS: BP 149/66
[2020-07-08] VITALS (7 sets, daily range): BP systolic 148–163; BP diastolic 65–81
[2020-07-08] MEDS: MORPHINE SULF INJ 2 MG/ML SYRINGE 1ML IV PRN ×7 (02:21→23:09)
[2020-07-08] MEDS: PROPYLTHIOURACIL 50 MG TAB PO SCH ×3 (06:00→22:00)
[2020-07-08] MEDS: ONDANSETRON HCL 4 MG/2 ML VIAL IV PRN ×2 (06:41→19:20)
--- NOTE | 2020-07-08 08:00 | NUR ---
ASSESSMENT NOTE PT IS ALERT ORIENTED X4, RESTING IN BED COMFORTABLY, CONTINUE SLEEPY DUE TO THE EFFECT OF THE MORPHINE, ENCOURAGED PT TO GET UP AND EAT BREAKFAST,NO DISTRESS NOTED, CONTINUE ON RA, CALL LIGHT WITHIN REACH
--- NOTE | 2020-07-08 08:15 | NUR ---
MIDLINE DEE MANAGER OF [employer] AT BED SIDE WITH A MID LINE INSERTION, PT MADE AWARE BEFORE HAND
--- NOTE | 2020-07-08 08:42 | NUR ---
MIDLINE IS IN AT RT UPPER ARM, PT TOLERATED WELL
--- NOTE | 2020-07-08 08:43 | NUR ---
DR GEORGES CALLED, MADE AWARE THAT PT HAS A FEW DROPS OF BROWN BLOOD, SAID TO BE CA;;ED WHEN HCG LABS RESULTED
--- NOTE | 2020-07-08 08:51 | NUR ---
Midline Placement: Patient educated on need for midline placement. All risks and benefits explained and all questions and concerns addresses prior to procedure.4 Fr 20cm midline inserted via right brachial vein using Ultrasound. Sterile technique utilized. Blood return obtained from the single lumen and flushed easily with NS using proper technique. Midline secured with saline lock; biodisc and occlusive dressing applied. Primary RN notified. Midline lot #[id number]. External length 0cm Internal length 20cm
[2020-07-08] MEDS: PANTOPRAZOLE 40 MG/10 ML VIAL INJ IV SCH (09:23)
[2020-07-08] MEDS: cefTRIAXone 1GM/50ML D5W 50 ML IV SCH (09:23)
[2020-07-08] MEDS: ENOXAPARIN SOD 30 MG/0.3 ML SYRINGE SC SCH (09:23)
[2020-07-08] MEDS: AZITHROMYCIN 250 MG TAB PO SCH (09:23)
--- NOTE | 2020-07-08 10:32 | NUR ---
DR GEORGES CALLED MADE AWARE WITH HCG RESULTS IS 4, NO NEW ORDERS
--- NOTE | 2020-07-08 12:15 | NUR ---
IN HOUSE COVID RESULTS IS -VE, CHARGE NURSE ALEXANDRA MADE AWARE
--- NOTE | 2020-07-08 12:52 | NUR ---
DR QUEVEDO IS HERE, AWARE THAT PT COVID RESULTS IS - VE, DR QUEVEDO SAID THAT DR SPARKS IS REQUESTING 3 NEGATIVE IN HOUSE, PT MADE AWARE, VERBALIZE UNDERSTANDING
--- NOTE | 2020-07-08 13:20 | NUR ---
JACOB PATRICIA # 3 SENT TO LAB
--- NOTE | 2020-07-08 15:00 | NUR ---
DIALYSIS PT IS STARTING THE PERITONEAL DIALYSIS
[2020-07-08] MEDS: hydrALAZINE HCL 25 MG TAB PO PRN (16:35)
--- NOTE | 2020-07-08 18:30 | NUR ---
PT CONTINUE PN PAIN MEDS A NEEDED, NO DISTRESS NOTED, CONTINUE MONITORING
--- NOTE | 2020-07-08 19:50 | NUR ---
Opening Shift Note Assumed care of patient, awake and alertX4. No S/S of distress/SOB or pain. Instructed on POC and to call for assist PRN, will continue to monitor for changes Q1hr and PRN.
--- NOTE | 2020-07-08 21:10 | NUR ---
Twan Farias Spoke to lab regarding patient's #3 sample. According to cath lab radiological technologist they received the sample but it has not been process, it will be process during graveyard shift.
--- NOTE | 2020-07-09 02:10 | NUR ---
Patient Transferred Patient In House result came back negative. Report given to SANTOS Ryan. Patient transferred via wheelchair to room 202. Patient tolerated well. No status change.
--- NOTE | 2020-07-09 02:15 | NUR ---
Transfer from [facility] Assumed care of patient. At this time patient has no s/s of distress or SOB. All questions and concerns answered. Safety precautions maintained. Will continue to monitor patient Q1 and PRN.
[2020-07-09] MEDS: MORPHINE SULF INJ 2 MG/ML SYRINGE 1ML IV PRN ×6 (02:30→23:20)
[2020-07-09 05:00] VITALS: BP 146/69
[2020-07-09] MEDS: PROPYLTHIOURACIL 50 MG TAB PO SCH ×3 (06:24→21:51)
--- NOTE | 2020-07-09 06:51 | NUR ---
End of Shift Note Will endorse care to dayshift RN. At this time patient has no s/s of distress or SOB.
[2020-07-09] MEDS: cefTRIAXone 1GM/50ML D5W 50 ML IV SCH (08:33)
[2020-07-09] MEDS: ONDANSETRON HCL 4 MG/2 ML VIAL IV PRN ×3 (08:33→21:57)
[2020-07-09 09:00] VITALS: BP 140/54
[2020-07-09 09:39] LABS: Basophils # (auto) 0 10 ^3/uL (0-0.2); Basophils % (auto) 0.6 % (0.0-2.0); Eosinophils # (auto) 0.2 10 ^3/uL (0-0.8); Eosinophils % (auto) 3.4 % (0.0-7.0); Hematocrit 25.8 % (36.0-46.0); Hemoglobin 8.7 g/dL (12.2-16.2); Lymphocytes # (auto) 1.4 10 ^3/uL (0.4-5.4); Lymphocytes % (auto) 25.9 % (10.0-50.0); Mean Corpuscular Hemoglobin 27.9 pg (28.0-32.0); Mean Corpuscular Hgb Conc. 33.9 g/dL (32.0-36.0); Mean Corpuscular Volume 82.3 fL (80.0-100.0); Monocytes # (auto) 0.5 10 ^3/uL (0-1.3); Monocytes % (auto) 9.1 % (0.0-12.0); Neutrophils # (auto) 3.3 10 ^3/uL (1.6-8.6); Nucleated Red Blood Cells % 0.1 %; Platelet Count (auto) 162 10^3/uL (140-450); Red Blood Cells 3.13 10^6/uL (4.0-5.20); Red Cell Distribution Width 17.2 % (11.8-14.3); White Blood Cell 5.4 10^3/uL (4.4-10.8)
[2020-07-09 09:50] LABS: Albumin 2.4 g/dL (3.4-5.0); Calcium 8.9 mg/dL (8.5-10.1); Potassium 3.1 mmol/L (3.5-5.1)
[2020-07-09 09:53] LABS: BUN/Creatinine Ratio 7.2; Bilirubin, Total 0.4 mg/dL (0.2-1.0); Total Protein 6.4 g/dL (6.4-8.2)
[2020-07-09] MEDS ORDERED: hydrOXYchloroQUINE SULFATE 200 MG TAB PO SCH ×2 (10:00→21:00)
[2020-07-09] MEDS: AZITHROMYCIN 250 MG TAB PO SCH (10:07)
[2020-07-09] MEDS: PANTOPRAZOLE 40 MG/10 ML VIAL INJ IV SCH (10:07)
[2020-07-09] MEDS: ENOXAPARIN SOD 30 MG/0.3 ML SYRINGE SC SCH (10:07)
[2020-07-09 10:15] LABS: Hepatitis B Surface Antibody Positive
[2020-07-09 10:20] LABS: INR 0.97 (0.9-1.15)
[2020-07-09 10:47] LABS: Hepatitis A Total Antibody Negative
--- NOTE | 2020-07-09 10:56 | NUR ---
Nutrition Assessment Notes Please refer to link for full assessment notes. Est Energy needs: 2142 kcals (35 kcal/kgBW) d/t pt with ESRD on PD Est Protein needs: 73-92 gms/day (1.2-1.5 gm/kgBW) d/t pt with ESRD on PD Will continue to monitor and reassess prn. Addendum: 07/09/20 at [address] Amended: Links added.
[2020-07-09] MEDS ORDERED: POTASSIUM CHL 20 Meq TABLET PO SCH (11:30)
[2020-07-09 11:56] LABS: Hepatitis B Core Total AB Negative; Hepatitis B Surface Antigen Negative (Negative)
[2020-07-09 11:57] LABS: Hepatitis C Antibody Negative (Negative)
[2020-07-09 12:00] LABS: Hepatitis A Ab IgM Negative; Hepatitis B Core IgM Negative
[2020-07-09 13:00] VITALS: BP 149/65
--- NOTE | 2020-07-09 15:25 | NUR ---
Peritoneal Dialysis Patient connected to begin her dialysis. Patient has all her needed supplies at bedside. Will continue to monitor.
[2020-07-09 16:53] VITALS: BP 146/55
--- NOTE | 2020-07-09 18:30 | NUR ---
Peritoneal Dialysis Dialysis continues, patient uncomplaining at this time. Will endorse care to shift supervisor RN.
--- NOTE | 2020-07-09 19:15 | NUR ---
Opening Shift Note Received report from Anais GRAHAM. Assumed care of patient, awake and alert, PD ongoing. No S/S of distress/SOB or pain. Instructed on POC and to call for assist PRN, will continue to monitor for changes Q1hr and PRN.
[2020-07-09 20:00] VITALS: BP 147/61
[2020-07-09] MEDS ORDERED: hydrOXYchloroQUINE SULFATE 200 MG TAB PO ONE (21:00)
[2020-07-09 22:00] VITALS: BP 147/61
[2020-07-10] MEDS: MORPHINE SULF INJ 2 MG/ML SYRINGE 1ML IV PRN ×3 (02:53→10:46)
[2020-07-10 05:00] VITALS: BP 134/59
[2020-07-10 06:26] LABS: Potassium 3.3 mmol/L (3.5-5.1)
[2020-07-10] MEDS: PROPYLTHIOURACIL 50 MG TAB PO SCH (06:28)
[2020-07-10 06:33] LABS: Albumin 2.3 g/dL (3.4-5.0); BUN/Creatinine Ratio 6.7; Bilirubin, Total 0.4 mg/dL (0.2-1.0); Calcium 8.9 mg/dL (8.5-10.1); Total Protein 6.3 g/dL (6.4-8.2)
--- NOTE | 2020-07-10 08:10 | NUR ---
Opening Shift Note Assumed care of patient, awake but drowsy. No S/S of distress/SOB or pain. Instructed on POC and to call for assist PRN, will continue to monitor for changes Q1hr and PRN. Special Delivery Mail Carrier at bedside with patient.
[2020-07-10 08:48] VITALS: BP 137/60
[2020-07-10] MEDS ORDERED: AZITHROMYCIN 250 MG TAB PO SCH (10:00)
[2020-07-10] MEDS ORDERED: POTASSIUM CHL 20 Meq TABLET PO SCH (10:15)
[2020-07-10] MEDS: cefTRIAXone 1GM/50ML D5W 50 ML IV SCH (10:36)
[2020-07-10] MEDS: ONDANSETRON HCL 4 MG/2 ML VIAL IV PRN (10:36)
[2020-07-10] MEDS: PANTOPRAZOLE 40 MG/10 ML VIAL INJ IV SCH (10:37)
[2020-07-10] MEDS: ENOXAPARIN SOD 30 MG/0.3 ML SYRINGE SC SCH (10:37)
--- NOTE | 2020-07-10 10:46 | NUR ---
Pain Patient complained of pain to her abdomen at 7/10. Medicated with Morphine as ordered. Will reassess and continue to monitor as per protocol.
[2020-07-10] MEDS ORDERED: SEVELAMER 800 MG TAB PO SCH (12:00)
[2020-07-10 12:08] VITALS: BP 158/66
[2020-07-10 13:00] VITALS: BP 143/57
--- NOTE | 2020-07-10 14:20 | NUR ---
Discharge instructions given as ordered. Encourage to follow up with PMD as instructed. All questions and concerns addressed. Patient verbalized understanding. Medication reconciliation form completed and copy given to patient. IV removed with catheter intact and pressure dressing applied. Telemetry unit returned to ICU. Patient taken to vehicle via wheelchair with all personal belongings, accompanied by staff and family member. No distress noted at time of departure.
== END 2020-07-10 14:00 | disposition home or self-care (01) | DRG 871 ==
LOC: ER 16:53 → TELE 16:54 → TELE-EAST 22:00 → TELE-WESTW 07-06 04:50 → TELE-EAST 07-07 17:04 → TELE-CENTR 07-09 03:03
PROVIDERS: ATTEND Internal Medicine Nephrology
PROC: 3E1M39Z Irrigation of Peritoneal Cavity using Dialysate, Percutaneous Approach (ICD-10-PCS; principal; 2020-07-08)
PROC: 05H933Z Insertion of Infusion Device into Right Brachial Vein, Percutaneous Approach (ICD-10-PCS; 2020-07-08)
DX: A41.9 Sepsis, unspecified organism (principal); J18.9 Pneumonia, unspecified organism; N18.6 End stage renal disease; I71.00 Dissection of unspecified site of aorta; I13.2 Hypertensive heart and chronic kidney disease with heart failure and with stage 5 chronic kidney disease, or end stage renal disease; Z99.2 Dependence on renal dialysis; D64.9 Anemia, unspecified; M32.9 Systemic lupus erythematosus, unspecified; Z20.828 Contact with and (suspected) exposure to other viral communicable diseases; Z88.6 Allergy status to analgesic agent; Z88.8 Allergy status to other drugs, medicaments and biological substances; E05.90 Thyrotoxicosis, unspecified without thyrotoxic crisis or storm; E83.39 Other disorders of phosphorus metabolism; D63.8 Anemia in other chronic diseases classified elsewhere; K74.60 Unspecified cirrhosis of liver; J06.9 Acute upper respiratory infection, unspecified; I50.9 Heart failure, unspecified; B34.9 Viral infection, unspecified; B96.89 Other specified bacterial agents as the cause of diseases classified elsewhere; Z83.3 Family history of diabetes mellitus; Z82.49 Family history of ischemic heart disease and other diseases of the circulatory system; Z84.89 Family history of other specified conditions
CPT/HCPCS: 36415; 71045; 76700; 80048; 80053; 81001; 82140; 82306; 82728; 83516; 83605; 83735; 83880; 83970; 84100; 84439; 84443; 84484; 84702; 85025; 85379; 85610; 86141; 86160; 86225; 86235; 86635; 86704; 86705; 86706; 86708; 86709; 86803; 87040; 87086; 87340; 87426; 87804; 93005; 96374; 96375; C9113; G0378; J0696; J2405

== ENCOUNTER 2020-09-28 12:36 | Inpatient (IN) | payer MEDICARE, MEDICAID ==
[~2020-09-28] VITALS: Ht 157.5 cm; Wt 56.9 kg
[~2020-09-28 12:36] MED LIST changes: -CINA30TA2 PO; -HYDR-3682 PO; -HYDR-531 PO; -LORA-205 PO; +LORA0.5T20 PO; +METH5T PO; +METO-169 PO; -MYCO250C PO; -PROM25TA5 PO; -SEVE800T8 PO; -TRAZ100T3 PO; +TRAZ300T16 PO
[2020-09-28] MEDS ORDERED: ONDANSETRON ODT 4 MG TAB PO ONE (13:30)
[2020-09-28 13:53] LABS: Basophils # (auto) 0 10 ^3/uL (0-0.2); Basophils % (auto) 0.5 % (0.0-2.0); Eosinophils # (auto) 0 10 ^3/uL (0-0.8); Hematocrit 36.2 % (36.0-46.0); Hemoglobin 12.5 g/dL (12.2-16.2); Lymphocytes # (auto) 0.7 10 ^3/uL (0.4-5.4); Lymphocytes % (auto) 17.9 % (10.0-50.0); Mean Corpuscular Hemoglobin 29.1 pg (28.0-32.0); Mean Corpuscular Hgb Conc. 34.5 g/dL (32.0-36.0); Mean Corpuscular Volume 84.5 fL (80.0-100.0); Monocytes # (auto) 0.3 10 ^3/uL (0-1.3); Monocytes % (auto) 7.7 % (0.0-12.0); Neutrophils # (auto) 2.8 10 ^3/uL (1.6-8.6); Neutrophils % (auto) 73.9 % (37.0-80.0); Platelet Count (auto) 104 10^3/uL (140-450); Red Blood Cells 4.28 10^6/uL (4.0-5.20); Red Cell Distribution Width 15.8 % (11.8-14.3); White Blood Cell 3.8 10^3/uL (4.4-10.8)
[2020-09-28 14:12] LABS: Albumin 2.7 g/dL (3.4-5.0); Calcium 8.3 mg/dL (8.5-10.1); Potassium 4.1 mmol/L (3.5-5.1)
[2020-09-28 14:13] LABS: BUN/Creatinine Ratio 9.4
[2020-09-28 14:14] LABS: Lactic Acid w/Reflex 2.3 mmol/L (0.4-2.0)
[2020-09-28 14:21] LABS: Bilirubin, Total 0.3 mg/dL (0.2-1.0); Total Protein 7.6 g/dL (6.4-8.2)
[2020-09-28] MEDS ORDERED: AZITHROMYCIN 500MG/ 250ML 250 ML IV ONE (14:45)
[2020-09-28] MEDS ORDERED: NITROGLYCERIN 0.4 MG SL TAB SL PRN (16:45)
[2020-09-28] MEDS ORDERED: DOCUSATE CALCIUM 240 MG CAP PO PRN (16:45)
[2020-09-28] MEDS ORDERED: SODIUM CHLORIDE 0.9% 1,000 ML IV ONE (16:45)
[2020-09-28] MEDS ORDERED: ONDANSETRON HCL 4 MG/2 ML VIAL IV PRN (16:45)
[2020-09-28] MEDS ORDERED: ACETAMINOPHEN 500 MG TAB PO PRN (16:45)
[2020-09-28] MEDS ORDERED: hydrALAZINE HCL 20 MG/ML VL IV PRN (16:45)
[2020-09-28] MEDS ORDERED: MORPHINE SULF INJ 2 MG/ML SYRINGE 1ML IV PRN (16:45)
[2020-09-28] MEDS ORDERED: VANCOMYCIN PER PHARMACY 0 MG IV SCH (18:15)
[2020-09-28 18:16] LABS: CRP High Sensitivity 3.8 mg/dL (< 0.3)
[2020-09-28 18:24] LABS: Beta HCG, Quantitative 6 mlU/mL (1-3); Thyroid Stimulating Hormone < 0.01 uIU/mL (0.358-3.74)
[2020-09-28 18:52] LABS: Phosphorus 10.1 mg/dL (2.5-4.90)
[2020-09-28] MEDS ORDERED: VANCOMYCIN 1GM/250ML 250 ML IV ONE (19:45)
[2020-09-28] MEDS ORDERED: CLINDAMYCIN 300MG IV 50 ML IV SCH (21:00)
[2020-09-28] MEDS: MORPHINE SULF INJ 2 MG/ML SYRINGE 1ML IV PRN (21:39)
[2020-09-28] MEDS: LORazepam 0.5 MG TAB PO SCH (22:42)
[2020-09-29] MEDS: MORPHINE SULF INJ 2 MG/ML SYRINGE 1ML IV PRN ×5 (01:49→23:20)
[2020-09-29] MEDS: PIPERACILLIN-TAZOB 2.25GM 50 ML IV SCH ×3 (03:59→21:32)
[2020-09-29 07:28] LABS: Basophils # (auto) 0 10 ^3/uL (0-0.2); Basophils % (auto) 0.3 % (0.0-2.0); Eosinophils # (auto) 0 10 ^3/uL (0-0.8); Hematocrit 30.1 % (36.0-46.0); Hemoglobin 10.2 g/dL (12.2-16.2); Lymphocytes # (auto) 0.9 10 ^3/uL (0.4-5.4); Lymphocytes % (auto) 27.9 % (10.0-50.0); Mean Corpuscular Hemoglobin 28.6 pg (28.0-32.0); Mean Corpuscular Hgb Conc. 33.8 g/dL (32.0-36.0); Mean Corpuscular Volume 84.5 fL (80.0-100.0); Monocytes # (auto) 0.4 10 ^3/uL (0-1.3); Monocytes % (auto) 12.3 % (0.0-12.0); Neutrophils # (auto) 1.9 10 ^3/uL (1.6-8.6); Neutrophils % (auto) 59.5 % (37.0-80.0); Platelet Count (auto) 87 10^3/uL (140-450); Red Blood Cells 3.57 10^6/uL (4.0-5.20); Red Cell Distribution Width 15.9 % (11.8-14.3); White Blood Cell 3.2 10^3/uL (4.4-10.8)
[2020-09-29 07:44] LABS: Potassium 3.7 mmol/L (3.5-5.1)
[2020-09-29 07:50] LABS: Albumin 2.3 g/dL (3.4-5.0)
[2020-09-29] MEDS: SEVELAMER 800 MG TAB PO SCH ×3 (08:00→18:50)
[2020-09-29 08:07] LABS: Bilirubin, Total 1.1 mg/dL (0.2-1.0); Calcium 7.7 mg/dL (8.5-10.1); Total Protein 6.5 g/dL (6.4-8.2)
[2020-09-29] MEDS: hydrOXYchloroQUINE SULFATE 200 MG TAB PO SCH (10:00)
[2020-09-29] MEDS: CHOLECALCIFEROL (VITD3) 2,000 UNIT CAP PO SCH (10:00)
[2020-09-29] MEDS: METOPROLOL SUCCINATE XL 50 MG TAB PO SCH (10:00)
[2020-09-29] MEDS: ASCORBIC ACID 1,000 MG TAB PO SCH (10:00)
[2020-09-29] MEDS: PANTOPRAZOLE 40 MG/10 ML VIAL INJ IV SCH (10:00)
[2020-09-29] MEDS: ZINC SULFATE 220mg CAP or TAB PO SCH (10:00)
[2020-09-29] MEDS: methIMAzole 5 MG TAB PO SCH (10:00)
[2020-09-29] MEDS: ENOXAPARIN SOD 40 MG/0.4 ML SYRINGE SC SCH (10:00)
[2020-09-29] MEDS: BUDESONIDE (INHALATION) 180 MCG IH IN SCH ×2 (11:09→18:40)
[2020-09-29] MEDS: PROMETHAZINE HCL 25 MG/ML 1ML IV PRN ×2 (11:17→18:51)
[2020-09-29] MEDS: LORazepam 0.5 MG TAB PO SCH (21:32)
[2020-09-30] VITALS: BP 146/53
[2020-09-30] MEDS: MORPHINE SULF INJ 2 MG/ML SYRINGE 1ML IV PRN ×2 (03:20→07:49)
[2020-09-30] MEDS: PROMETHAZINE HCL 25 MG/ML 1ML IV PRN ×3 (04:55→18:48)
[2020-09-30 06:12] LABS: Basophils # (auto) 0 10 ^3/uL (0-0.2); Basophils % (auto) 0.4 % (0.0-2.0); Eosinophils # (auto) 0 10 ^3/uL (0-0.8); Hematocrit 28.3 % (36.0-46.0); Hemoglobin 9.7 g/dL (12.2-16.2); Lymphocytes # (auto) 0.8 10 ^3/uL (0.4-5.4); Lymphocytes % (auto) 26.8 % (10.0-50.0); Mean Corpuscular Hemoglobin 28.6 pg (28.0-32.0); Mean Corpuscular Hgb Conc. 34.4 g/dL (32.0-36.0); Mean Corpuscular Volume 83.2 fL (80.0-100.0); Monocytes # (auto) 0.4 10 ^3/uL (0-1.3); Monocytes % (auto) 11.7 % (0.0-12.0); Neutrophils # (auto) 1.9 10 ^3/uL (1.6-8.6); Neutrophils % (auto) 61.1 % (37.0-80.0); Nucleated Red Blood Cells % 0.2 %; Platelet Count (auto) 87 10^3/uL (140-450); Red Cell Distribution Width 15.7 % (11.8-14.3); White Blood Cell 3.1 10^3/uL (4.4-10.8)
[2020-09-30 06:24] LABS: Potassium 3.3 mmol/L (3.5-5.1)
[2020-09-30 06:34] LABS: Albumin 2.1 g/dL (3.4-5.0); Bilirubin, Total 0.8 mg/dL (0.2-1.0); Calcium 7.2 mg/dL (8.5-10.1); Total Protein 6.4 g/dL (6.4-8.2)
[2020-09-30] MEDS: PERITONEAL DIALYSIS 2.5% SOLN 2,000 ML IP SCH ×5 (07:26→18:00)
[2020-09-30] MEDS: BUDESONIDE (INHALATION) 180 MCG IH IN SCH ×3 (07:26→22:11)
[2020-09-30] MEDS: SEVELAMER 800 MG TAB PO SCH ×3 (07:31→18:17)
[2020-09-30 08:00] VITALS: BP 145/52
[2020-09-30 08:02] LABS: Urine Bacteria NONE SEEN /hpf (None Seen); Urine Blood Negative /uL (Negative); Urine Specific Gravity 1.006 (1.001-1.035); Urine WBC 1 /hpf (0 - 5)
[2020-09-30] MEDS: ASCORBIC ACID 1,000 MG TAB PO SCH (10:43)
[2020-09-30] MEDS: ZINC SULFATE 220mg CAP or TAB PO SCH (10:43)
[2020-09-30] MEDS: PANTOPRAZOLE 40 MG/10 ML VIAL INJ IV SCH (10:43)
[2020-09-30] MEDS: PIPERACILLIN-TAZOB 2.25GM 50 ML IV SCH ×2 (10:43→22:12)
[2020-09-30] MEDS: methIMAzole 5 MG TAB PO SCH (10:43)
[2020-09-30] MEDS: hydrOXYchloroQUINE SULFATE 200 MG TAB PO SCH ×2 (10:43→12:36)
[2020-09-30] MEDS: ENOXAPARIN SOD 40 MG/0.4 ML SYRINGE SC SCH (10:44)
[2020-09-30] MEDS: METOPROLOL SUCCINATE XL 50 MG TAB PO SCH (10:44)
[2020-09-30] MEDS: CHOLECALCIFEROL (VITD3) 2,000 UNIT CAP PO SCH (10:44)
[2020-09-30] MEDS: HYDROmorphone HCL 2 MG/ML VL IV PRN ×2 (12:37→18:48)
[2020-09-30 16:00] VITALS: BP 139/54
[2020-09-30] MEDS: HYDROcodone-ACET 10/325MG TAB PO PRN ×2 (16:34→22:39)
[2020-09-30] MEDS: LORazepam 0.5 MG TAB PO SCH (22:12)
[2020-10-01] VITALS: BP 148/59
[2020-10-01] MEDS: PROMETHAZINE HCL 25 MG/ML 1ML IV PRN ×4 (01:09→21:55)
[2020-10-01] MEDS: HYDROmorphone HCL 2 MG/ML VL IV PRN ×4 (01:09→21:55)
[2020-10-01] MEDS: HYDROcodone-ACET 10/325MG TAB PO PRN ×3 (05:41→23:44)
[2020-10-01] MEDS: PERITONEAL DIALYSIS 2.5% SOLN 2,000 ML IP SCH ×4 (06:00→18:00)
[2020-10-01 06:34] LABS: Basophils # (auto) 0 10 ^3/uL (0-0.2); Basophils % (auto) 0.6 % (0.0-2.0); Eosinophils # (auto) 0 10 ^3/uL (0-0.8); Eosinophils % (auto) 0.6 % (0.0-7.0); Hematocrit 33.3 % (36.0-46.0); Hemoglobin 10.9 g/dL (12.2-16.2); Lymphocytes % (auto) 30.9 % (10.0-50.0); Mean Corpuscular Hemoglobin 28.2 pg (28.0-32.0); Mean Corpuscular Hgb Conc. 32.7 g/dL (32.0-36.0); Mean Corpuscular Volume 86.2 fL (80.0-100.0); Monocytes # (auto) 0.4 10 ^3/uL (0-1.3); Monocytes % (auto) 11.9 % (0.0-12.0); Neutrophils # (auto) 1.8 10 ^3/uL (1.6-8.6); Nucleated Red Blood Cells % 0.1 %; Platelet Count (auto) 106 10^3/uL (140-450); Red Blood Cells 3.86 10^6/uL (4.0-5.20); Red Cell Distribution Width 16.2 % (11.8-14.3); White Blood Cell 3.3 10^3/uL (4.4-10.8)
[2020-10-01] MEDS: BUDESONIDE (INHALATION) 180 MCG IH IN SCH (06:37)
[2020-10-01 06:54] LABS: Potassium 3.5 mmol/L (3.5-5.1)
[2020-10-01 07:18] LABS: BUN/Creatinine Ratio 8.3; Calcium 6.8 mg/dL (8.5-10.1); Phosphorus 8.9 mg/dL (2.5-4.90)
[2020-10-01] MEDS: SEVELAMER 800 MG TAB PO SCH ×5 (08:47→18:00)
[2020-10-01 09:00] VITALS: BP 132/56
[2020-10-01] MEDS: PIPERACILLIN-TAZOB 2.25GM 50 ML IV SCH ×3 (10:00→21:37)
[2020-10-01] MEDS: hydrOXYchloroQUINE SULFATE 200 MG TAB PO SCH ×2 (10:00→15:47)
[2020-10-01] MEDS: PANTOPRAZOLE 40 MG/10 ML VIAL INJ IV SCH (11:19)
[2020-10-01] MEDS: CHOLECALCIFEROL (VITD3) 2,000 UNIT CAP PO SCH (11:20)
[2020-10-01] MEDS: ASCORBIC ACID 1,000 MG TAB PO SCH (11:20)
[2020-10-01] MEDS: methIMAzole 5 MG TAB PO SCH ×3 (11:20→21:37)
[2020-10-01] MEDS: ZINC SULFATE 220mg CAP or TAB PO SCH (11:20)
[2020-10-01] MEDS: ENOXAPARIN SOD 40 MG/0.4 ML SYRINGE SC SCH (11:21)
[2020-10-01] MEDS: METOPROLOL SUCCINATE XL 50 MG TAB PO SCH (11:22)
[2020-10-01] MEDS ORDERED: VANCOMYCIN 500 MG in D5W 5% 100 ML IV ONE (15:00)
[2020-10-01 16:00] VITALS: BP 120/54
[2020-10-01] MEDS: LORazepam 0.5 MG TAB PO SCH (21:37)
[2020-10-01 23:55] VITALS: BP 124/60
[2020-10-02] MEDS: HYDROmorphone HCL 2 MG/ML VL IV PRN ×4 (03:55→19:58)
[2020-10-02] MEDS: PROMETHAZINE HCL 25 MG/ML 1ML IV PRN ×3 (03:55→19:05)
[2020-10-02] MEDS: HYDROcodone-ACET 10/325MG TAB PO PRN ×2 (05:57→22:17)
[2020-10-02] MEDS: PERITONEAL DIALYSIS 2.5% SOLN 2,000 ML IP SCH ×4 (06:00→17:28)
[2020-10-02 06:17] LABS: Basophils # (auto) 0 10 ^3/uL (0-0.2); Basophils % (auto) 0.4 % (0.0-2.0); Eosinophils # (auto) 0 10 ^3/uL (0-0.8); Eosinophils % (auto) 0.7 % (0.0-7.0); Hemoglobin 10.8 g/dL (12.2-16.2); Lymphocytes # (auto) 0.8 10 ^3/uL (0.4-5.4); Lymphocytes % (auto) 20.7 % (10.0-50.0); Mean Corpuscular Hemoglobin 29.1 pg (28.0-32.0); Mean Corpuscular Hgb Conc. 34.8 g/dL (32.0-36.0); Mean Corpuscular Volume 83.5 fL (80.0-100.0); Monocytes # (auto) 0.4 10 ^3/uL (0-1.3); Monocytes % (auto) 9.9 % (0.0-12.0); Neutrophils # (auto) 2.7 10 ^3/uL (1.6-8.6); Neutrophils % (auto) 68.3 % (37.0-80.0); Nucleated Red Blood Cells % 0.1 %; Platelet Count (auto) 125 10^3/uL (140-450); Red Blood Cells 3.71 10^6/uL (4.0-5.20); Red Cell Distribution Width 15.6 % (11.8-14.3); White Blood Cell 3.9 10^3/uL (4.4-10.8)
[2020-10-02] MEDS: methIMAzole 5 MG TAB PO SCH ×3 (06:57→22:16)
[2020-10-02] MEDS: BUDESONIDE (INHALATION) 180 MCG IH IN SCH ×2 (07:18→20:01)
[2020-10-02] MEDS: ALBUTEROL SULF HFA 90MCG INH 200DOSE IN PRN ×2 (07:18→20:01)
[2020-10-02 08:00] VITALS: BP 113/54
[2020-10-02] MEDS: SEVELAMER 800 MG TAB PO SCH ×4 (08:00→18:00)
[2020-10-02 09:01] LABS: Potassium 3.3 mmol/L (3.5-5.1)
[2020-10-02] MEDS: ZINC SULFATE 220mg CAP or TAB PO SCH ×2 (10:00→10:49)
[2020-10-02] MEDS: ASCORBIC ACID 500 MG TAB PO SCH ×2 (10:00→10:50)
[2020-10-02] MEDS: CHOLECALCIFEROL (VITD3) 2,000 UNIT CAP PO SCH ×2 (10:00→10:50)
[2020-10-02] MEDS: hydrOXYchloroQUINE SULFATE 200 MG TAB PO SCH (10:00)
[2020-10-02 10:03] LABS: Albumin 2.1 g/dL (3.4-5.0); BUN/Creatinine Ratio 7.5; Bilirubin, Total 0.5 mg/dL (0.2-1.0); Calcium 6.5 mg/dL (8.5-10.1); Total Protein 6.8 g/dL (6.4-8.2)
[2020-10-02] MEDS: PANTOPRAZOLE 40 MG/10 ML VIAL INJ IV SCH (10:48)
[2020-10-02] MEDS: PIPERACILLIN-TAZOB 2.25GM 50 ML IV SCH ×2 (10:49→22:16)
[2020-10-02] MEDS: METOPROLOL SUCCINATE XL 50 MG TAB PO SCH (10:50)
[2020-10-02] MEDS: ENOXAPARIN SOD 40 MG/0.4 ML SYRINGE SC SCH (10:51)
[2020-10-02 16:00] VITALS: BP 119/60
[2020-10-02] MEDS: LORazepam 0.5 MG TAB PO SCH (22:15)
[2020-10-03] VITALS: BP 116/55
[2020-10-03] MEDS: HYDROmorphone HCL 2 MG/ML VL IV PRN ×6 (00:21→23:56)
[2020-10-03] MEDS: PROMETHAZINE HCL 25 MG/ML 1ML IV PRN ×2 (04:27→14:05)
[2020-10-03] MEDS: PERITONEAL DIALYSIS 2.5% SOLN 2,000 ML IP SCH ×5 (05:20→23:54)
[2020-10-03 06:07] LABS: Basophils # (auto) 0 10 ^3/uL (0-0.2); Eosinophils # (auto) 0 10 ^3/uL (0-0.8)
[2020-10-03 06:12] LABS: Basophils % (auto) 0.6 % (0.0-2.0); Eosinophils % (auto) 1.5 % (0.0-7.0); Hematocrit 34.6 % (36.0-46.0); Hemoglobin 11.6 g/dL (12.2-16.2); Lymphocytes % (auto) 32.6 % (10.0-50.0); Mean Corpuscular Hemoglobin 27.5 pg (28.0-32.0); Mean Corpuscular Hgb Conc. 33.5 g/dL (32.0-36.0); Mean Corpuscular Volume 82.1 fL (80.0-100.0); Monocytes # (auto) 0.3 10 ^3/uL (0-1.3); Monocytes % (auto) 8.5 % (0.0-12.0); Neutrophils # (auto) 1.8 10 ^3/uL (1.6-8.6); Neutrophils % (auto) 56.8 % (37.0-80.0); Nucleated Red Blood Cells % 0.2 %; Platelet Count (auto) 128 10^3/uL (140-450); Red Blood Cells 4.21 10^6/uL (4.0-5.20); Red Cell Distribution Width 15.7 % (11.8-14.3); White Blood Cell 3.1 10^3/uL (4.4-10.8)
[2020-10-03] MEDS: methIMAzole 5 MG TAB PO SCH ×4 (06:31→21:51)
[2020-10-03] MEDS: HYDROcodone-ACET 10/325MG TAB PO PRN ×2 (06:32→21:22)
[2020-10-03 08:00] VITALS: BP 108/50
[2020-10-03] MEDS: SEVELAMER 800 MG TAB PO SCH ×3 (08:52→18:24)
[2020-10-03 09:15] LABS: BUN/Creatinine Ratio 6.8; Calcium 6.5 mg/dL (8.5-10.1)
[2020-10-03 09:30] LABS: Potassium 2.8 mmol/L (3.5-5.1)
[2020-10-03] MEDS ORDERED: POTASSIUM CHL 20 Meq TABLET PO ONE (10:15)
[2020-10-03] MEDS ORDERED: POTASSIUM CHLORIDE 60 MEQ, LIDOCAINE 1% (LOCAL ANESTH.) 6 ML in SODIUM CHL 0.9% 500 ML IV ONE (10:15)
[2020-10-03] MEDS: BUDESONIDE (INHALATION) 180 MCG IH IN SCH ×2 (10:28→19:34)
[2020-10-03] MEDS: PANTOPRAZOLE 40 MG/10 ML VIAL INJ IV SCH (10:28)
[2020-10-03] MEDS: PIPERACILLIN-TAZOB 2.25GM 50 ML IV SCH ×2 (10:29→21:50)
[2020-10-03] MEDS: ZINC SULFATE 220mg CAP or TAB PO SCH (10:29)
[2020-10-03] MEDS: CHOLECALCIFEROL (VITD3) 2,000 UNIT CAP PO SCH (10:30)
[2020-10-03] MEDS: ASCORBIC ACID 500 MG TAB PO SCH (10:30)
[2020-10-03] MEDS: METOPROLOL SUCCINATE XL 50 MG TAB PO SCH (10:30)
[2020-10-03] MEDS: ENOXAPARIN SOD 40 MG/0.4 ML SYRINGE SC SCH (10:31)
[2020-10-03] MEDS: hydrOXYchloroQUINE SULFATE 200 MG TAB PO SCH (10:34)
[2020-10-03 16:00] VITALS: BP 121/59
[2020-10-03] MEDS: ALBUTEROL SULF HFA 90MCG INH 200DOSE IN PRN (19:35)
[2020-10-03] MEDS: LORazepam 0.5 MG TAB PO SCH (21:50)
[2020-10-04] VITALS: BP 124/46
[2020-10-04] MEDS: PROMETHAZINE HCL 25 MG/ML 1ML IV PRN ×3 (03:42→23:16)
[2020-10-04] MEDS: HYDROmorphone HCL 2 MG/ML VL IV PRN ×5 (04:03→23:16)
[2020-10-04] MEDS: PERITONEAL DIALYSIS 2.5% SOLN 2,000 ML IP SCH ×3 (06:00→18:00)
[2020-10-04] MEDS: methIMAzole 5 MG TAB PO SCH ×3 (07:16→21:35)
[2020-10-04 08:00] VITALS: BP 113/47
[2020-10-04] MEDS: SEVELAMER 800 MG TAB PO SCH ×3 (08:30→18:17)
[2020-10-04] MEDS: BUDESONIDE (INHALATION) 180 MCG IH IN SCH ×2 (09:35→20:26)
[2020-10-04] MEDS: PANTOPRAZOLE 40 MG/10 ML VIAL INJ IV SCH (09:35)
[2020-10-04] MEDS: PIPERACILLIN-TAZOB 2.25GM 50 ML IV SCH (09:36)
[2020-10-04] MEDS: POTASSIUM CHL 20 Meq TABLET PO SCH (09:36)
[2020-10-04] MEDS: ZINC SULFATE 220mg CAP or TAB PO SCH (09:36)
[2020-10-04] MEDS: hydrOXYchloroQUINE SULFATE 200 MG TAB PO SCH (09:36)
[2020-10-04] MEDS: ASCORBIC ACID 500 MG TAB PO SCH (09:37)
[2020-10-04] MEDS: METOPROLOL SUCCINATE XL 50 MG TAB PO SCH (09:37)
[2020-10-04] MEDS: CHOLECALCIFEROL (VITD3) 2,000 UNIT CAP PO SCH (09:38)
[2020-10-04] MEDS: ENOXAPARIN SOD 40 MG/0.4 ML SYRINGE SC SCH (09:38)
[2020-10-04 09:58] LABS: BUN/Creatinine Ratio 6.5; Calcium 6.3 mg/dL (8.5-10.1); Potassium 3.6 mmol/L (3.5-5.1)
[2020-10-04] MEDS ORDERED: cefTAZidime 1 GM in SODIUM CHL 0.9% 50 ML IV ONE (11:15)
[2020-10-04 16:00] VITALS: BP 138/60
[2020-10-04] MEDS: ALBUTEROL SULF HFA 90MCG INH 200DOSE IN PRN (20:27)
[2020-10-04] MEDS: LORazepam 0.5 MG TAB PO SCH (21:35)
[2020-10-04] MEDS: HYDROcodone-ACET 10/325MG TAB PO PRN (21:53)
[2020-10-05] VITALS: BP 136/61
[2020-10-05] MEDS: HYDROmorphone HCL 2 MG/ML VL IV PRN ×6 (03:46→21:43)
[2020-10-05] MEDS: PROMETHAZINE HCL 25 MG/ML 1ML IV PRN ×2 (05:44→16:27)
[2020-10-05] MEDS: PERITONEAL DIALYSIS 2.5% SOLN 2,000 ML IP SCH ×4 (06:00→14:39)
[2020-10-05] MEDS: ALBUTEROL SULF HFA 90MCG INH 200DOSE IN PRN (06:37)
[2020-10-05] MEDS: methIMAzole 5 MG TAB PO SCH ×3 (06:50→21:56)
[2020-10-05 08:00] VITALS: BP 116/55
[2020-10-05] MEDS: SEVELAMER 800 MG TAB PO SCH ×3 (08:21→17:36)
[2020-10-05] MEDS: PANTOPRAZOLE 40 MG/10 ML VIAL INJ IV SCH (08:47)
[2020-10-05] MEDS: ZINC SULFATE 220mg CAP or TAB PO SCH (10:38)
[2020-10-05] MEDS: hydrOXYchloroQUINE SULFATE 200 MG TAB PO SCH (10:38)
[2020-10-05] MEDS: BUDESONIDE (INHALATION) 180 MCG IH IN SCH ×2 (10:38→22:00)
[2020-10-05] MEDS: POTASSIUM CHL 20 Meq TABLET PO SCH (10:38)
[2020-10-05] MEDS: CHOLECALCIFEROL (VITD3) 2,000 UNIT CAP PO SCH (10:39)
[2020-10-05] MEDS: ENOXAPARIN SOD 40 MG/0.4 ML SYRINGE SC SCH (10:39)
[2020-10-05] MEDS: METOPROLOL SUCCINATE XL 50 MG TAB PO SCH (10:39)
[2020-10-05] MEDS: ASCORBIC ACID 500 MG TAB PO SCH (10:39)
[2020-10-05] MEDS: cefTAZidime 0.5 GM in SODIUM CHL 0.9% 50 ML IV SCH (10:40)
[2020-10-05 14:25] LABS: Basophils # (auto) 0 10 ^3/uL (0-0.2); Basophils % (auto) 0.2 % (0.0-2.0); Eosinophils # (auto) 0.1 10 ^3/uL (0-0.8); Hematocrit 27.6 % (36.0-46.0); Hemoglobin 9.4 g/dL (12.2-16.2); Lymphocytes % (auto) 31.5 % (10.0-50.0); Mean Corpuscular Hemoglobin 28.3 pg (28.0-32.0); Mean Corpuscular Volume 83.4 fL (80.0-100.0); Monocytes # (auto) 0.4 10 ^3/uL (0-1.3); Monocytes % (auto) 10.8 % (0.0-12.0); Neutrophils # (auto) 1.8 10 ^3/uL (1.6-8.6); Neutrophils % (auto) 55.5 % (37.0-80.0); Nucleated Red Blood Cells % 0.1 %; Platelet Count (auto) 180 10^3/uL (140-450); Red Blood Cells 3.31 10^6/uL (4.0-5.20); Red Cell Distribution Width 16.2 % (11.8-14.3); White Blood Cell 3.3 10^3/uL (4.4-10.8)
[2020-10-05 14:46] LABS: BUN/Creatinine Ratio 6.6; Calcium 6.6 mg/dL (8.5-10.1); Potassium 3.7 mmol/L (3.5-5.1)
[2020-10-05 16:00] VITALS: BP 115/56
[2020-10-05] MEDS: LORazepam 0.5 MG TAB PO SCH (21:55)
[2020-10-06] VITALS: BP 121/58
[2020-10-06] MEDS: PROMETHAZINE HCL 25 MG/ML 1ML IV PRN ×2 (00:59→08:06)
[2020-10-06] MEDS: HYDROcodone-ACET 10/325MG TAB PO PRN (01:47)
[2020-10-06] MEDS: HYDROmorphone HCL 2 MG/ML VL IV PRN ×3 (03:51→12:08)
[2020-10-06] MEDS: PERITONEAL DIALYSIS 2.5% SOLN 2,000 ML IP SCH ×3 (06:00→11:38)
[2020-10-06] MEDS: methIMAzole 5 MG TAB PO SCH (06:04)
[2020-10-06 07:11] LABS: Calcium 6.6 mg/dL (8.5-10.1); Potassium 3.2 mmol/L (3.5-5.1)
[2020-10-06 07:13] LABS: BUN/Creatinine Ratio 6.2
[2020-10-06] MEDS: BUDESONIDE (INHALATION) 180 MCG IH IN SCH (07:48)
[2020-10-06] MEDS: ALBUTEROL SULF HFA 90MCG INH 200DOSE IN PRN (07:48)
[2020-10-06 08:00] VITALS: BP 125/67
[2020-10-06] MEDS: ASCORBIC ACID 500 MG TAB PO SCH (08:03)
[2020-10-06] MEDS: CHOLECALCIFEROL (VITD3) 2,000 UNIT CAP PO SCH (08:03)
[2020-10-06] MEDS: ENOXAPARIN SOD 40 MG/0.4 ML SYRINGE SC SCH (08:04)
[2020-10-06] MEDS: METOPROLOL SUCCINATE XL 50 MG TAB PO SCH (08:05)
[2020-10-06] MEDS: ZINC SULFATE 220mg CAP or TAB PO SCH (08:05)
[2020-10-06] MEDS: POTASSIUM CHL 20 Meq TABLET PO SCH (08:05)
[2020-10-06] MEDS: SEVELAMER 800 MG TAB PO SCH ×2 (08:06→11:46)
[2020-10-06] MEDS: cefTAZidime 0.5 GM in SODIUM CHL 0.9% 50 ML IV SCH (10:00)
[2020-10-06] MEDS: hydrOXYchloroQUINE SULFATE 200 MG TAB PO SCH (10:00)
[2020-10-06] MEDS ORDERED: PANTOPRAZOLE 40 MG TAB PO SCH (10:00)
[2020-10-06 11:21] VITALS: BP 140/67
== END 2020-10-06 13:15 | disposition home or self-care (01) | DRG 871 ==
LOC: ER 12:36 → TELE 12:37 → TELE-EAST 09-29 18:19
PROVIDERS: ADMIT Family Medicine; ATTEND Internal Medicine
PROC: 3E1M39Z Irrigation of Peritoneal Cavity using Dialysate, Percutaneous Approach (ICD-10-PCS; principal; 2020-09-30)
PROC: 3E1M39Z Irrigation of Peritoneal Cavity using Dialysate, Percutaneous Approach (ICD-10-PCS; 2020-10-01)
PROC: 3E1M39Z Irrigation of Peritoneal Cavity using Dialysate, Percutaneous Approach (ICD-10-PCS; 2020-10-02)
PROC: 3E1M39Z Irrigation of Peritoneal Cavity using Dialysate, Percutaneous Approach (ICD-10-PCS; 2020-10-04)
PROC: 3E1M39Z Irrigation of Peritoneal Cavity using Dialysate, Percutaneous Approach (ICD-10-PCS; 2020-10-05)
DX: A41.9 Sepsis, unspecified organism (principal); U07.1 COVID-19; N18.6 End stage renal disease; I71.00 Dissection of unspecified site of aorta; K65.9 Peritonitis, unspecified; J12.82 Pneumonia due to coronavirus disease 2019; I50.42 Chronic combined systolic (congestive) and diastolic (congestive) heart failure; I13.2 Hypertensive heart and chronic kidney disease with heart failure and with stage 5 chronic kidney disease, or end stage renal disease; Z99.2 Dependence on renal dialysis; D69.6 Thrombocytopenia, unspecified; E78.5 Hyperlipidemia, unspecified; E05.90 Thyrotoxicosis, unspecified without thyrotoxic crisis or storm; F32.9 Major depressive disorder, single episode, unspecified; F41.9 Anxiety disorder, unspecified; M79.7 Fibromyalgia; D64.9 Anemia, unspecified; M32.9 Systemic lupus erythematosus, unspecified; Z88.6 Allergy status to analgesic agent; Z88.8 Allergy status to other drugs, medicaments and biological substances; E03.9 Hypothyroidism, unspecified; E83.39 Other disorders of phosphorus metabolism; E87.6 Hypokalemia; Z79.899 Other long term (current) drug therapy; Z82.49 Family history of ischemic heart disease and other diseases of the circulatory system; Z83.3 Family history of diabetes mellitus; Z90.49 Acquired absence of other specified parts of digestive tract; G47.00 Insomnia, unspecified; G89.29 Other chronic pain; R73.9 Hyperglycemia, unspecified
CPT/HCPCS: 36415; 71045; 74176; 80048; 80053; 80202; 81001; 82306; 82728; 83036; 83605; 83615; 83735; 83880; 83970; 84100; 84436; 84443; 84484; 84702; 85025; 85379; 86141; 87040; 87205; 87426; 89051; 93005; 94640; C9113; G0378; J2001; J2405; J2543; J7060; Q0162

== ENCOUNTER 2021-01-22 16:26 | Inpatient (IN) | payer MEDICARE, MEDICAID ==
[~2021-01-22] VITALS: Ht 157.5 cm; Wt 59.0 kg
[2021-01-22] MEDS ORDERED: HYDROmorphone HCL 2 MG/ML VL IV ONE ×2 (18:15→20:15)
[2021-01-22] MEDS ORDERED: ONDANSETRON HCL 4 MG/2 ML VIAL IV ONE ×2 (18:15→20:15)
[2021-01-22 18:31] LABS: Basophils # (auto) 0 10 ^3/uL (0-0.2); Basophils % (auto) 0.5 % (0.0-2.0); Eosinophils # (auto) 0.1 10 ^3/uL (0-0.8); Eosinophils % (auto) 1.1 % (0.0-7.0); Hematocrit 26.2 % (36.0-46.0); Hemoglobin 8.8 g/dL (12.2-16.2); Lymphocytes # (auto) 1.2 10 ^3/uL (0.4-5.4); Mean Corpuscular Hemoglobin 28.9 pg (28.0-32.0); Mean Corpuscular Hgb Conc. 33.7 g/dL (32.0-36.0); Mean Corpuscular Volume 85.9 fL (80.0-100.0); Monocytes # (auto) 0.8 10 ^3/uL (0-1.3); Monocytes % (auto) 8.2 % (0.0-12.0); Neutrophils # (auto) 7.4 10 ^3/uL (1.6-8.6); Neutrophils % (auto) 77.2 % (37.0-80.0); Nucleated Red Blood Cells % 0.1 %; Platelet Count (auto) 225 10^3/uL (140-450); Red Blood Cells 3.05 10^6/uL (4.0-5.20); Red Cell Distribution Width 14.5 % (11.8-14.3); White Blood Cell 9.6 10^3/uL (4.4-10.8)
[2021-01-22 18:43] LABS: Albumin 2.8 g/dL (3.4-5.0); Anion Gap 18 (5-15); Calcium 8.7 mg/dL (8.5-10.1); Carbon Dioxide 17 mmol/L (21-32); Chloride 99 mmol/L (98-107); Glucose 78 mg/dL (74-106); Potassium 3.8 mmol/L (3.5-5.1); Sodium 134 mmol/L (136-145)
[2021-01-22 18:46] LABS: Alanine Aminotransferase 17 U/L (13-56); Aspartate Aminotransferase 14 U/L (15-37); BUN/Creatinine Ratio 7.2; GFR African American 5 mL/min; GFR Non-African American 4 mL/min
[2021-01-22 18:51] LABS: Alkaline Phosphatase 265 U/L (45-117); Bilirubin, Total 0.5 mg/dL (0.2-1.0); Total Protein 7.1 g/dL (6.4-8.2)
[2021-01-22 18:56] LABS: Blood Urea Nitrogen 83 mg/dL (7-18)
[2021-01-22 22:01] LABS: Urine Bacteria FEW /hpf (None Seen); Urine Blood TRACE /uL (Negative); Urine Specific Gravity 1.015 (1.001-1.035); Urine WBC 7 /hpf (0 - 5)
[2021-01-22] MEDS ORDERED: PANTOPRAZOLE 40 MG/10 ML VIAL INJ IV ONE (23:15)
[2021-01-22] MEDS ORDERED: ACETAMINOPHEN 325 MG TAB PO PRN (23:15)
[2021-01-23] VITALS (7 sets, daily range): BP systolic 114–136; BP diastolic 52–68
[2021-01-23] MEDS: ONDANSETRON HCL 4 MG/2 ML VIAL IV PRN ×4 (00:14→13:55)
[2021-01-23] MEDS: MORPHINE SULFATE 4 MG/ML SYR/VIAL IV PRN ×3 (00:15→09:29)
[2021-01-23] MEDS: HYDROcodone-ACET 5/325MG TAB PO PRN ×2 (01:23→12:50)
[2021-01-23] MEDS: SODIUM CHLORIDE 0.9% 1,000 ML IV SCH ×2 (01:35→20:16)
[2021-01-23] MEDS: PIPERACILLIN-TAZOB 2.25GM 50 ML IV SCH ×3 (01:35→21:35)
[2021-01-23] MEDS: TEMAZEPAM 15 MG CAP PO PRN ×2 (02:00→21:35)
[2021-01-23] MEDS ORDERED: VANCOMYCIN PER PHARMACY 0 MG IV SCH (03:00)
[2021-01-23] MEDS ORDERED: VANCOMYCIN 1GM/250ML 250 ML IV ONE (03:30)
[2021-01-23] MEDS ORDERED: SEVE2.4P PO (03:50)
[2021-01-23] MEDS ORDERED: HYDR-4798 PO (03:50)
[2021-01-23] MEDS ORDERED: HYDR-4924 PO (03:50)
[2021-01-23] MEDS ORDERED: ONDA-144 PO (03:50)
[2021-01-23 05:56] LABS: Basophils # (auto) 0 10 ^3/uL (0-0.2)
[2021-01-23 05:59] LABS: Basophils % (auto) 0.5 % (0.0-2.0); Eosinophils # (auto) 0.1 10 ^3/uL (0-0.8); Eosinophils % (auto) 1.8 % (0.0-7.0); Hematocrit 22.1 % (36.0-46.0); Hemoglobin 7.6 g/dL (12.2-16.2); Lymphocytes % (auto) 24.7 % (10.0-50.0); Mean Corpuscular Hemoglobin 29.9 pg (28.0-32.0); Mean Corpuscular Hgb Conc. 34.6 g/dL (32.0-36.0); Mean Corpuscular Volume 86.4 fL (80.0-100.0); Monocytes # (auto) 0.7 10 ^3/uL (0-1.3); Monocytes % (auto) 8.6 % (0.0-12.0); Neutrophils # (auto) 5.2 10 ^3/uL (1.6-8.6); Neutrophils % (auto) 64.4 % (37.0-80.0); Platelet Count (auto) 205 10^3/uL (140-450); Red Blood Cells 2.55 10^6/uL (4.0-5.20); Red Cell Distribution Width 14.2 % (11.8-14.3); White Blood Cell 8.1 10^3/uL (4.4-10.8)
[2021-01-23 06:14] LABS: Albumin 2.2 g/dL (3.4-5.0); BUN/Creatinine Ratio 7.2; Calcium 7.7 mg/dL (8.5-10.1); Potassium 3.4 mmol/L (3.5-5.1)
[2021-01-23 06:17] LABS: Bilirubin, Total 0.7 mg/dL (0.2-1.0)
[2021-01-23] MEDS: PANTOPRAZOLE 40 MG/10 ML VIAL INJ IV SCH (09:26)
[2021-01-23] MEDS: METOPROLOL SUCCINATE XL 50 MG TAB PO SCH (09:27)
[2021-01-23] MEDS: hydrOXYchloroQUINE SULFATE 200 MG TAB PO SCH (09:28)
[2021-01-23] MEDS: methIMAzole 5 MG TAB PO SCH (09:28)
[2021-01-23] MEDS ORDERED: GASTROGRAFIN 120 ML SOL ONE (10:41)
[2021-01-23] MEDS: HYDROmorphone HCL 2 MG/ML VL IV PRN ×2 (13:54→20:16)
[2021-01-23] MEDS: PROMETHAZINE HCL 25 MG/ML 1ML IV PRN (17:53)
[2021-01-23 20:00] LABS: Amylase 5 U/L (25-115); Lipase 123 U/L (73-393)
[2021-01-23 20:03] LABS: Creatine Kinase IFCC 152 U/L (26-192)
[2021-01-24] MEDS: HYDROcodone-ACET 5/325MG TAB PO PRN ×4 (01:00→18:44)
[2021-01-24] MEDS: HYDROmorphone HCL 2 MG/ML VL IV PRN ×4 (02:31→21:53)
[2021-01-24] MEDS: PROMETHAZINE HCL 25 MG/ML 1ML IV PRN ×4 (02:44→21:53)
[2021-01-24 04:55] VITALS: BP 117/41
[2021-01-24 07:00] LABS: Albumin 2.4 g/dL (3.4-5.0); BUN/Creatinine Ratio 6.5; Bilirubin, Total 0.6 mg/dL (0.2-1.0); Calcium 9.2 mg/dL (8.5-10.1); Total Protein 7.1 g/dL (6.4-8.2)
[2021-01-24 07:32] LABS: Phosphorus 8.8 mg/dL (2.5-4.90)
[2021-01-24 08:36] VITALS: BP 118/59
[2021-01-24] MEDS: PIPERACILLIN-TAZOB 2.25GM 50 ML IV SCH ×2 (08:51→21:52)
[2021-01-24] MEDS: PANTOPRAZOLE 40 MG/10 ML VIAL INJ IV SCH (08:53)
[2021-01-24] MEDS: methIMAzole 5 MG TAB PO SCH (08:54)
[2021-01-24] MEDS: METOPROLOL SUCCINATE XL 50 MG TAB PO SCH (08:57)
[2021-01-24] MEDS: hydrOXYchloroQUINE SULFATE 200 MG TAB PO SCH (08:58)
[2021-01-24 12:38] VITALS: BP 120/51
[2021-01-24] MEDS: SUCRALFATE 1 GM TAB PO SCH ×3 (13:50→21:52)
[2021-01-24] MEDS: SODIUM CHLORIDE 0.9% 1,000 ML IV SCH (15:25)
[2021-01-24 16:40] VITALS: BP 138/47
[2021-01-24 20:00] VITALS: BP 121/64
[2021-01-24] MEDS: TEMAZEPAM 15 MG CAP PO PRN (21:54)
[2021-01-24 22:00] VITALS: BP 121/64
[2021-01-25] MEDS: HYDROmorphone HCL 2 MG/ML VL IV PRN ×3 (04:43→17:26)
[2021-01-25] MEDS: PROMETHAZINE HCL 25 MG/ML 1ML IV PRN ×3 (04:44→17:26)
[2021-01-25 05:00] VITALS: BP 132/54
[2021-01-25] MEDS: SUCRALFATE 1 GM TAB PO SCH ×4 (06:18→22:11)
[2021-01-25 08:15] VITALS: BP 123/58
[2021-01-25 09:00] VITALS: BP 123/48
[2021-01-25] MEDS: methIMAzole 5 MG TAB PO SCH (11:16)
[2021-01-25] MEDS: hydrOXYchloroQUINE SULFATE 200 MG TAB PO SCH (11:16)
[2021-01-25] MEDS: PIPERACILLIN-TAZOB 2.25GM 50 ML IV SCH ×2 (11:16→22:11)
[2021-01-25] MEDS: PANTOPRAZOLE 40 MG/10 ML VIAL INJ IV SCH (11:16)
[2021-01-25] MEDS: SODIUM CHLORIDE 0.9% 1,000 ML IV SCH (11:17)
[2021-01-25] MEDS: METOPROLOL SUCCINATE XL 50 MG TAB PO SCH (11:17)
[2021-01-25 12:41] VITALS: BP 117/63
[2021-01-25] MEDS: HYDROcodone-ACET 5/325MG TAB PO PRN ×2 (14:17→20:19)
[2021-01-25] MEDS ORDERED: VANCOMYCIN 500 MG in D5W 5% 100 ML IV ONE (15:00)
[2021-01-25 16:44] VITALS: BP 125/48
[2021-01-25 21:41] VITALS: BP 140/56
[2021-01-26] MEDS: PROMETHAZINE HCL 25 MG/ML 1ML IV PRN ×3 (00:12→14:05)
[2021-01-26] MEDS: HYDROmorphone HCL 2 MG/ML VL IV PRN ×3 (00:12→14:04)
[2021-01-26 05:00] VITALS: BP 134/55
[2021-01-26] MEDS: SUCRALFATE 1 GM TAB PO SCH ×2 (05:52→11:46)
[2021-01-26] MEDS: HYDROcodone-ACET 5/325MG TAB PO PRN ×2 (05:53→12:56)
[2021-01-26 06:32] LABS: Anion Gap 16 (5-15); Blood Urea Nitrogen 61 mg/dL (7-18); Calcium 7.8 mg/dL (8.5-10.1); Carbon Dioxide 22 mmol/L (21-32); Chloride 97 mmol/L (98-107); GFR African American 6 mL/min; GFR Non-African American 5 mL/min; Glucose 106 mg/dL (74-106); Potassium 3.1 mmol/L (3.5-5.1); Sodium 135 mmol/L (136-145)
[2021-01-26] MEDS: SODIUM CHLORIDE 0.9% 1,000 ML IV SCH (07:25)
[2021-01-26 08:09] LABS: Basophils # (auto) 0.1 10 ^3/uL (0-0.2); Basophils % (auto) 0.5 % (0.0-2.0); Eosinophils # (auto) 0.6 10 ^3/uL (0-0.8); Eosinophils % (auto) 5.5 % (0.0-7.0); Hemoglobin 8.8 g/dL (12.2-16.2); Lymphocytes # (auto) 2.6 10 ^3/uL (0.4-5.4); Lymphocytes % (auto) 25.3 % (10.0-50.0); Mean Corpuscular Hemoglobin 28.7 pg (28.0-32.0); Mean Corpuscular Hgb Conc. 33.8 g/dL (32.0-36.0); Mean Corpuscular Volume 84.8 fL (80.0-100.0); Monocytes # (auto) 0.9 10 ^3/uL (0-1.3); Monocytes % (auto) 8.8 % (0.0-12.0); Neutrophils # (auto) 6.2 10 ^3/uL (1.6-8.6); Neutrophils % (auto) 59.9 % (37.0-80.0); Nucleated Red Blood Cells % 0.1 %; Platelet Count (auto) 298 10^3/uL (140-450); Red Blood Cells 3.06 10^6/uL (4.0-5.20); Red Cell Distribution Width 14.5 % (11.8-14.3); White Blood Cell 10.3 10^3/uL (4.4-10.8)
[2021-01-26 08:20] VITALS: BP 129/53
[2021-01-26 08:46] VITALS: BP 129/53
[2021-01-26] MEDS: PANTOPRAZOLE 40 MG/10 ML VIAL INJ IV SCH (10:45)
[2021-01-26] MEDS: hydrOXYchloroQUINE SULFATE 200 MG TAB PO SCH (10:45)
[2021-01-26] MEDS: PIPERACILLIN-TAZOB 2.25GM 50 ML IV SCH (10:45)
[2021-01-26] MEDS: methIMAzole 5 MG TAB PO SCH (10:46)
[2021-01-26] MEDS: METOPROLOL SUCCINATE XL 50 MG TAB PO SCH (10:49)
[2021-01-26 13:00] VITALS: BP 114/54
[2021-01-26 13:01] VITALS: BP 114/54
== END 2021-01-26 15:30 | disposition home or self-care (01) | DRG 371 ==
LOC: ER 16:26 → OVERFLOW 23:20 → WEST WING 23:48
PROVIDERS: ADMIT Nurse Practitioner; ATTEND Family Medicine
PROC: 05HD33Z Insertion of Infusion Device into Right Cephalic Vein, Percutaneous Approach (ICD-10-PCS; 2021-01-22)
PROC: B54MZZA Ultrasonography of Right Upper Extremity Veins, Guidance (ICD-10-PCS; 2021-01-22)
PROC: 3E1M39Z Irrigation of Peritoneal Cavity using Dialysate, Percutaneous Approach (ICD-10-PCS; principal; 2021-01-24)
DX: K65.9 Peritonitis, unspecified (principal); N18.6 End stage renal disease; E43 Unspecified severe protein-calorie malnutrition; K56.7 Ileus, unspecified; I13.2 Hypertensive heart and chronic kidney disease with heart failure and with stage 5 chronic kidney disease, or end stage renal disease; K56.600 Partial intestinal obstruction, unspecified as to cause; E03.9 Hypothyroidism, unspecified; E78.5 Hyperlipidemia, unspecified; K29.70 Gastritis, unspecified, without bleeding; M32.9 Systemic lupus erythematosus, unspecified; D63.1 Anemia in chronic kidney disease; E78.00 Pure hypercholesterolemia, unspecified; I50.9 Heart failure, unspecified; F41.9 Anxiety disorder, unspecified; E05.90 Thyrotoxicosis, unspecified without thyrotoxic crisis or storm; E87.6 Hypokalemia; F32.9 Major depressive disorder, single episode, unspecified; G89.29 Other chronic pain; M79.7 Fibromyalgia; N25.0 Renal osteodystrophy; Z68.23 Body mass index [BMI] 23.0-23.9, adult; Z82.49 Family history of ischemic heart disease and other diseases of the circulatory system; Z83.3 Family history of diabetes mellitus; Z86.79 Personal history of other diseases of the circulatory system; Z99.2 Dependence on renal dialysis; Z90.49 Acquired absence of other specified parts of digestive tract; Z98.51 Tubal ligation status; Z88.6 Allergy status to analgesic agent; Z88.8 Allergy status to other drugs, medicaments and biological substances
CPT/HCPCS: 36415; 71045; 72170; 74018; 74176; 74250; 80048; 80053; 80202; 81001; 82150; 82550; 83605; 83690; 83880; 84100; 84443; 84484; 85025; 85379; 86160; 87040; 87081; 87205; 87426; 89051; 93005; 96365; 96375; 96376; C9113; G0378; J2405; J2543; J7060